=== PATIENT | female | born 1970 | race Caucasian/White ===

== ENCOUNTER → 2016-07-06 | Outpatient (REF) | payer OTHER, BC ==
[~2016-07-06] MED LIST: ABIL15TA; ACET160S5 PO; ALBU17IN2 INH; ALBU20IN; ALBUTEROL INHALATION; AMBI5TAB; AVELOX PO; BISO10TA PO; CAHNTIXC PO; CELE20TA; CELE20TA PO; CHAN0.5P PO; DIFL200T PO; DILA100C; DILA100C PO; DILAN100 PO; ECOT81TA2 PO; ELIDEL TOPICAL; ERYTHROOPT; FISH1000 PO; FOLI1TAB2 PO; HYDR12.55 PO; LASI20TA PO; LISI10TA4 PO; LORA1TAB PO; METH2.5TA PO; OMEP40CA2 PO; PLAV75TA PO; SIMV40TA2 PO; SPIR1CAP INH; VITA100037 PO; ZANTAC150 PO; [UNRECOGNIZED DRUG - OTHER] TOPICAL
[2016-07-06 12:29] LABS: BASO # 0.1 K/mm3 (0.0-0.2); BASO % 1.4 % (0.0-1.0); EOS # 0.4 K/mm3 (0.0-0.50); EOS % 4.6 % (0.0-3.0); LARGE UNSTAINED CELL # 0.1 K/mm3 (0.0-0.4); LARGE UNSTAINED CELL % 1.7 % (0.0-4.0); LYMPH # 1.8 K/mm3 (1.5-4.5); LYMPH % 21.8 % (24.0-44.0); MEAN CORPUSCULAR HEMOGLOBIN 31.3 pg (27.0-33.0); MEAN CORPUSCULAR HGB CONC 33.4 g/dl (32.0-36.5); MEAN CORPUSCULAR VOLUME 93.6 fl (80.0-96.0); MONO # 0.5 K/mm3 (0.0-0.8); MONO % 6.6 % (0.0-5.0); NEUTROPHILS # 4.8 K/mm3 (1.8-7.7); PLATELET COUNT, AUTOMATED 167 k/mm3 (150-450); RED CELL DISTRIBUTION WIDTH 16.3 % (11.5-14.5); WHITE BLOOD COUNT 7.5 K/mm3 (4.0-10.0)
[2016-07-06 12:48] LABS: ERYTHROCYTE SEDIMENTATION RATE 13 mm/hr (0-20)
== END ==
LOC: M LABDRAW1 11:45
PROVIDERS: ATTEND Orthopaedic Surgery
DX: S46.011D Strain of muscle(s) and tendon(s) of the rotator cuff of right shoulder, subsequent encounter (principal); Y92.89 Other specified places as the place of occurrence of the external cause; Y93.89 Activity, other specified; Y99.8 Other external cause status; X58.XXXA Exposure to other specified factors, initial encounter

== ENCOUNTER → 2016-09-27 | Outpatient (CLI) | payer BC ==
[~2016-09-27] MED LIST changes: -ECOT81TA2 PO; +ECOT81TA5 PO; -LORA1TAB PO; +LORA1TAB12 PO; -PLAV75TA PO; +PLAV75TA38 PO
--- NOTE | 2016-09-27 13:27 | REP ---
RIGHT BREAST ULTRASOUND: 09/27/2016. Clinical history: Tender and painful area lower inner quadrant right breast. Comparison diagnostic digital bilateral mammogram today. Sonographic evaluation of the lower inner quadrant from 3 to 6 o'clock position in the right breast where the patient has fairly diffuse pain. No sonographic abnormalities were defined with minimally heterogeneous fatty parenchyma evident. There is no cyst, dilated duct, architectural distortion or mass. No skin thickening. Impression: 1. Negative right breast ultrasound for mass, architectural distortion, dilated duct or cyst. Please see mammogram report this date for final assessment and recommendation. Signed by Kosta Washington MD 09/27/2016 05:07 P
--- NOTE | 2016-09-27 13:30 | REP ---
BILATERAL DIAGNOSTIC MAMMOGRAM: 09/27/2016. Comparison: Right breast ultrasound this date. Clinical history: Tenderness right lower inner quadrant of the breast. No discharge. No palpable mass. Findings: This is a baseline mammogram. Standard two-view mammography was performed and a marker placed over the lower inner quadrant right breast where the patient has tenderness. Additional anterior left MLO view to encompass the entirety of the breast with spot magnified CC, MLO and true MLO views of the right breast, attention to the lower inner quadrant. The breast parenchyma show only scant fibroglandular elements scattered throughout in a pattern and distribution fairly symmetric. I do not see dominant mass, architectural distortion, suspicious clusters of microcalcification, nor any other secondary signs of malignancy. Subjacent to the triangle marker in the region of her tenderness, there is no discrete mass, architectural distortion, clustered microcalcification or other secondary sign of malignancy. Right breast ultrasound lower inner quadrant showed no sonographic definable mass. Impression: 1. BIRADS ACR category 2, benign. Benign finding. No evidence of malignancy. 2. Recommend followup mammography 1 year. This mammogram was interpreted with the aid of an FDA-approved computer-aided detection system. A. Negative x-ray reports should not delay biopsy if a dominant or clinically suspicious mass is present. B. Four to eight percent of cancers are not identified by x-ray. C. Adenosis and dense breasts may obscure an underlying neoplasm. The patient states she had a clinical breast exam in 08/2016. The patient letter being requested is M1. Signed by Kosta Washington MD 09/27/2016 05:08 P
== END ==
LOC: M RAD 10:36
PROVIDERS: ATTEND Family Medicine
DX: N64.4 Mastodynia (principal)
CPT/HCPCS: 76642; G0204

== ENCOUNTER → 2016-10-17 | Outpatient (CLI) | payer BC ==
--- NOTE | 2016-10-17 23:57 | ECWPNPC ---
PATIENT NAME: GEOFFREY PURI : 1970 GENDER: FEMALE VISIT DATE: 10/17/2016 DISCHARGE DATE: 10/17/16 1315 VISIT LOCKED DATE TIME: PHYSICIAN: ROSEMARY DAVE RESOURCE: ROSEMARY DAVE REASON FOR APPOINTMENT 1. BACK PAIN/LEG HISTORY OF PRESENT ILLNESS NEW PATIENT CONSULT: 46 Y/O FEMALE REFERRED BY DR. SALVADOR FOR CHRONIC LOW BACK PAIN/BILAT LEG PAIN.HISTORY OF MULTIPLE COMORBIDITIES.ON CHRONIC PLAVIX THERAPY FOR PERIPHERAL VASCULAR DISEASE.LOW BACK PAIN BEGAN GRADUALLY 4 YEARS AGO WITHOUT PRECIPITATING EVENT.DIAGNOSED WITH PVD IN 2014 AND FEMORAL STENTS WERE PLACED AT THAT TIME.RECENTLY SAW VASCULAR SURGEON FOR F/U FOR INCREASE IN LEG PAIN AND HE FEELS LEG PAIN IS COMING FROM SPINE.HAD TWO LESI IN 2013 WITH AND THIS DIDNT HELP.SAW DR. SAMANIEGO ,RHEUMTOLOGY IN 2014 AND WAS DIAGNOSED WITH RHEUMATOID ARTHRITIS.STARTED ON METHOTREXATE IN 2014 AND THIS DOESNT SEEM TO BE HELPING.THEY ARE CONSIDERING STARTING HER ON REMICADE.SHE REPORTS POOR QUALITY OF LIFE AND DEPRESSED STATE.DENIES SUICIDAL IDEATION.REPORTING SEVERE ACTIVITY INTOLERANCE.HAS GAINED SEVERAL POUNDS OVER THE PAST YEAR.IS CONSIDERING GASTRIC BYPASS.DENIES BOWEL OR BLADDER INCONTINENCE.NO RECENT FEVER ILLNESS OR WEIGHT LOSS.RATING PAIN VAS 8/10. WHEN DID YOUR PAIN FIRST START? . BRIEFLY DESCRIBE HOW YOUR PAIN STARTED? . HOW DOES YOUR PAIN CHANGE WITH TIME? . DOES YOUR PAIN AWAKEN YOU FROM SLEEP? . HOW MANY HOURS OF SLEEP DO YOU NORMALLY GET? . ANY DIAGNOSTIC TESTING? . FACILITY WHERE TESTS WERE DONE? ____. PAIN TREATMENT TREATMENT YES CANCER HAVE YOU EVER HAD ANY TYPE OF CANCER?NO NO. PAIN SCREENING: PATIENT HAS A COMPLAINT OF ACUTE OR CHRONIC PAIN :YES FALL RISK SCREENING: SCREENING :NO FALLS IN THE PAST YEAR OLIVAS INVENTORY: QUESTIONNAIRE ASSESSEDYES SCORE VALUE CALCULATED YES SCORE:25 CURRENT MEDICATIONS TAKING DILANTIN 100 MG CAPSULE 7 CAPS ORALLY DAILY TAKING ASPIRIN EC 81 MG TABLET DELAYED RELEASE 1 TABLET ORALLY ONCE A DAY TAKING TYLENOL 325 MG TABLET 1 TABLET NEEDED ORALLY EVERY 6 HRS TAKING DRISDOL 08981 UNIT CAPSULE 1 CAPSULE ORALLY THREE TIMES A WEEK TAKING ALBUTEROL 0.083% AEROSOL SOLUTION 3 ML INHALATION Q6H PRN TAKING CLOPIDOGREL BISULFATE 75 MG TABLET 1 TABLET ORALLY ONCE A DAY TAKING ALBUTEROL SULFATE HFA 108 (90 BASE) MCG/ACT AEROSOL SOLUTION 2 PUFFS INHALATION QID PRN TAKING OMEGA 3 1000 MG CAPSULE 1 CAPSULE ORALLY DAILY TAKING NYSTATIN 171518 UNIT/GM POWDER 1 TO AFFECTED AREA EXTERNALLY TO ABDOMEN TWICE A DAY, NOTES: USES NEEDED TAKING BISOPROLOL FUMARATE 10 MG TABLET 1 TABLET ORALLY ONCE A DAY TAKING CELEXA 20 MG TABLET 2 TABLET ORALLY ONCE A DAY TAKING HYDROCHLOROTHIAZIDE 12.5 MG TABLET 1 TABLET ORALLY ONCE A DAY TAKING LISINOPRIL 10 MG TABLET 1 TABLET ORALLY ONCE A DAY TAKING LASIX 20 MG TABLET 1 TABLET ORALLY ONCE A DAY TAKING SPIRIVA HANDIHALER 18 MCG CAPSULE 1 CAPSULE INHALATION ONCE A DAY TAKING AMMONIUM LACTATE 12 % LOTION 1 APPLICATION TO AFFECTED AREA EXTERNALLY TO RASH ON ARMS, NECK TWICE A DAY TAKING METRONIDAZOLE 0.75 % LOTION 1 APPLICATION TO AFFECTED AREA EXTERNALLY TO FACE TWICE A DAY TAKING ZOCOR 20 MG TABLET 1 TAB ORALLY DAILY TAKING OMEPRAZOLE 40MG 40MG TABLET 1 TAB(S) ORAL DAILY TAKING CLOBETASOL PROPIONATE 0.05 % CREAM 1 APPLICATION TO AFFECTED AREA EXTERNALLY TO TRUNK TWICE A DAY TAKING TERBINAFINE 1 % CREAM TOPICAL TO FEET EXTERNALLY DAILY TAKING HYDROCODONE-ACETAMINOPHEN 5-325 MG TABLET 1 TABLET NEEDED ORALLY EVERY 6 HRS MDD=4 TAKING ATIVAN 1 MG TABLET 1 TABLET NEEDED ORALLY TID PRN MDD=3 TAKING METHOTREXATE 2.5 MG TABLET ORALLY 8 TABLETS/ WEEK TAKING FOLIC ACID 1 MG TABLET 1 TABLET ORALLY BID TAKING CLOTRIMAZOLE-BETAMETHASONE 1-0.05 % CREAM 1 APPLICATION TO AFFECTED AREA EXTERNALLY TWICE A DAY NOT-TAKING FLUCONAZOLE 200 MG TABLET TAKE ONE TABLET BY MOUTH EVERY DAY NOT-TAKING HIBICLENS 4 % LIQUID DIRECTED EXTERNALLY , NOTES: USES ONCE A WEEK NOT-TAKING DIFLUCAN 200 MG TABLET 1 TABLET ORALLY ONCE DAILY NOT-TAKING LOTRISONE 1-0.05 % CREAM 1 APPLICATION TO AFFECTED AREA EXTERNALLY TWICE A DAY MEDICATION LIST REVIEWED AND RECONCILED WITH THE PATIENT PAST MEDICAL HISTORY SEIZURE DISORDER S/P (BRAIN SURGERY) - HAS BEEN SEIZURE FREE SINCE TUMOR REMOVED TELOGEN EFFLUVIM (HAIR LOSS) DEPRESSION DRUG OVERDOSE 05/09 DEPRESSION CONVULSIONS HYPERLIPIDEMIA HYPERTENSION, ESSENTIAL INSOMNIA, UNSPECIFIED VITAMIN D INSUFFICIENCY OBSTRUCTIVE SLEEP APNEA (ADULT) (PEDIATRIC) CARPAL TUNNEL SYNDROME, UNSPECIFIED UPPER LIMB PERIODIC LIMB MOVEMENT DISORDER NICOTINE DEPENDENCE, CIGARETTES, UNCOMPLICATED ANXIETY DISORDER GASTROESOPHAGEAL REFLUX OTHER SPECIFIED SYMPTOMS AND SIGNS INVOLVING THE DIGESTIVE SYSTEM AND ABDOMEN MORBID OBESITY BODY MASS INDEX (BMI) OF 50-59.9 IN ADULT 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 NESBITT COPD BACK PAIN NECK PAIN RHEUMATOID ARTHRITIS ALLERGIES PENICILLIN (FOR ALLERGIES USE ONLY): CANT BREATH: ALLERGY SULFATES: RASH: ALLERGY SURGICAL HISTORY EXCISION OF BENIGN BRAIN TUMOR 1986 1986 TUBAL LIGATION CARP TUNNEL LEFT 05/19/14 CARP TUNNEL RIGHT 08/06/14 3 STENTS PLACED - RIGHT COMMON ILIAC ARTERY, AND LEFT COMMON ILIIAC ARTERIES - DR. HUTCHINSON 05/11/15 RIGHT ROTATOR CUFF 04/04/16 FAMILY HISTORY FATHER: , CARDIAC DISEASE ? , SUICIDE, DIAGNOSED WITH HEART DISEASE, PSYCHIATRIC CONDITIONS MOTHER: , LUNG CANCER, DIAGNOSED WITH CANCER SIBLINGS: ALIVE, BROTHER DIABETES, DIVERTICULITIS SISTER OVARIAN CANCER BOTH SISTER HEART PROBLEMS, 1 PACE MAKER, DIAGNOSED WITH DIABETES, HEART DISEASE, CANCER DAUGHTER(S): ALIVE 3 BROTHER(S) , 2 SISTER(S) . 1DAUGHTER(S) . SOCIAL HISTORY GENERAL: TOBACCO USE ARE YOU A:CURRENT SMOKER HOW MANY CIGARETTES A DAY DO YOU SMOKE?21-30 STATES THAT SHE IS DOWN TO 20 CIGARETTES PER DAY FROM 31. HOW SOON AFTER YOU WAKE UP DO YOU SMOKE YOUR FIRST CIGARETTE?6-30 MIN HOW OFTEN DO YOU SMOKE CIGARETTES?EVERY DAY PATIENT COUNSELED ON THE DANGERS OF TOBACCO USE AND URGED TO QUIT:09/22/2016 10/17/16 ARE YOU INTERESTED IN QUITTING?READY TO QUIT PATIENT BOUGHT PATCHES TO HELP QUIT COUNSELED THE PATIENT ON TOBACCO USE, CESSATION [id number]/18/2017 ADDITIONAL FINDINGS: TOBACCO USERHEAVY CIGARETTE SMOKER (20-39 CIGS/DAY) SMOKING CESSATION INFORMATION GIVEN10/17/2016 ADDITIONAL FINDINGS: TOBACCO NON-USER NONE VAPORNO E-CIGARETTENO BMI CARE GOAL FOLLOW-UP ABOVE NORMAL BMI FOLLOW-UPDIETARY MANAGEMENT EDUCATION, GUIDANCE, AND COUNSELING ALCOHOL SCREENING POINTS: 1, INTERPRETATION: NEGATIVE. RECREATIONAL DRUG USE DENIES. CAFFEINE CAFFEINE USE?YES HOW OFTEN AND HOW MUCH? 2 CUPS OF COFFEE PER DAY, 1 SODA PER WEEK HIV / HEP-C SCREENING HIV TEST OFFERED TO PATIENT:YES DATE OFFERED:09/22/2016 TEST ACCEPTED:NO REASON:PATIENT DECLINED CONSENT ON FILE HEP-C TEST OFFERED TO PATIENT:YES DATE OFFERED:09/22/2016 TEST ACCEPTED:NO REASON:PATIENT DECLINED CONSENT ON FILE OCCUPATION: [employer] AT [employer], CURRENTLY OUT ON COMP.. DIET: REGULAR. EXERCISE: NO REGULAR EXERCISE. MARITAL STATUS: . OTHERS AT HOME: SPOUSE. PETS: 2 CATS. SABIANIST NO CHEONDOISM BELIEFS THAT WOULD IMPACT HEALTH CARE. LANGUAGE [employer]. EDUCATION HIGH SCHOOL. LEARNING BARRIERS / SPECIAL NEEDS CHANGE FROM LAST VISIT?NO BARRIERS TO LEARNING?NO HEARING IMPAIRED?NO VISION IMPAIRED?YES :CORRECTIVE LENSES COGNITIVELY IMPAIRED?NO READINESS TO LEARN?YES LEARNING PREFERENCES?NO LEARNING CAPABILITIES PRESENT?YES EMOTIONAL BARRIERS?NO SPECIAL DEVICES?YES :CANE ENVIRONMENTAL HEALTH PHYSICIAN NEEDED?NO PAIN CLINIC PFS, CLERGY, PUBLIC HEALTH REFERRALS CLERGY REFERRAL NEEDED?NO WAS THE PROVIDER NOTIFIED OF ANY PERTINENT INFO?NO PFS REFERRAL NEEDED?NO PUBLIC HEALTH REFERRAL NEEDED?NO PATIENT: ____. ADVANCED DIRECTIVES HEALTH CARE PROXY?NO WOULD YOU LIKE MORE INFORMATION?NO DO YOU HAVE A DNR?NO WOULD YOU LIKE MORE INFORMATION?NO LIVING WILL?NO WOULD YOU LIKE MORE INFORMATION?NO POWER OF INSIDE SALES PROFESSIONAL?NO WOULD YOU LIKE MORE INFORMATION?NO TRAVEL OUTSIDE US: NO TRAVEL OUTSIDE THE US IN THE LAST 21 DAYS.. HOUSING: OWNS HOME. DOMESTIC VIOLENCE: NONE. HOSPITALIZATION/MAJOR DIAGNOSTIC PROCEDURE SURGERY DRUG OVERDOSE 2008 REVIEW OF SYSTEMS CONSTITUTIONAL: RECENT ILLNESS DENIES . ANY CHANGE IN YOUR MEDICAL CONDITION? NO . CHILLS NO . FEVER NO, DENIES . WEIGHT LOSS DENIES . INFECTION: DO YOU HAVE NEW INFECTIONS? NO . DO YOU HAVE HISTORY OF MRSA? NO . MUSCULOSKELETAL: ANY NEW PATTERNS OF PAIN OR NUMBNESS? NO . SYTEMIC LUPUS NO . JOINT PAIN DENIES . JOINT STIFFNESS DENIES . GASTROENTEROLOGY: BOWEL INCONTINENCE DENIES . ANY NEW CHANGE IN BOWEL CONTROL? NO . BARRETTS ESOPHAGUS NO . CIRRHOSIS NO . HEPATITIS NO . LIVER FAILURE NO . ACID REFLUX YES . BLOOD IN STOOL DENIES . UNEXPLAINED WEIGHT LOSS NO . GENITOURINARY: ANY NEW CHANGE IN BLADDER CONTROL? NO . IS THERE A CHANCE YOU COULD BE ? NO . HEMATOLOGY/LYMPH: DENIES . BLEEDING DISORDER DENIES . DO YOU TAKE ANY BLOOD THINNERS? (FOR EXAMPLE- COUMADIN, PLAVIX, AGGRENOX, PLATEL, PRADAXA, OR XARELTO) YES . WHEN WAS YOUR LAST DOSE? DATE: TIME: . LOW PLATELET COUNT NO . SICKLE CELL DISEASE NO . VON WILLIEBRANDS NO . FACTOR V LEIDEN NO . THALLASEMIA NO . ANEMIA NO . EASY BRUISING NO . NEUROLOGY: HAVE YOU FALLEN IN THE PAST 6 MONTHS? NO . ANY NEW EXTREMITY NUMBNESS OR WEAKNESS? NO . HEAD INJURY NO . DEMENTIA NO . CEREBRAL PALSY NO . MULTIPLE SCLEROSIS NO . DIZZINESS NO . HEADACHE NO, DENIES . SEIZURES DENIES . STROKES NO . VERTIGO NO . CARDIOLOGY: DO YOU HAVE A PACEMAKER OR DEFIBRILLATOR? NO . ANGINA NO . HEART ATTACK NO . HEART SURGERY NO . CONGESTIVE HEART FAILURE/FLUID OVERLOAD NO . CHEST PAIN NO, DENIES . HIGH BLOOD PRESSURE ON MEDICATION(S) . IRREGULAR HEART BEAT NO . SHORTNESS OF BREATH DENIES . RESPIRATORY: HAVE YOU BEEN SICK IN THE PAST WEEK? NO . FEVER NO . FLU LIKE SYMPTOMS? NO . CPAP YES . BYPAP NO . ASTHMA NO . EMPHYSEMA NO . CHRONIC LUNG DISEASES YES, COPD . SHORTNESS OF BREATH ON EXERTION NO . DO YOU USE ANY TYPE OF TOBACCO (SMOKE, SMOKELESS, CHEW)? YES . COUGH NO, DENIES . SHORTNESS OF BREATH DENIES . SNORING NO . INTEGUMENTARY: DO YOU HAVE ANY RASHES OR OPEN SORES? YES, RASH UNDER SKIN FOLDS . ALLERGIC/IMMUNO: ARE YOU ALLERGIC TO SHELLFISH OR IV DYE? NO . ANY NEW ALLERGIES? NO . PSYCHIATRIC: DO YOU HAVE THOUGHTS OF HURTING YOURSELF OR SOMEONE ELSE? NO . ARE YOU ABUSED, NEGLECTED, OR IN AN UNSAFE ENVIRONMENT? NO . ENDOCRINOLOGY: THYROID DISEASE DENIES . ARE YOU DIABETIC? NO . DIABETES DENIES . THYROID DISORDER NO . OTHER: DO YOU NEED ANY PRESCRIPTIONS? NO . IF YES, PLEASE LIST: ____ . ANY NEW PROBLEMS WITH YOUR MEDICATIONS? NO . WHEN DID YOU LAST EAT? ____ . WHEN DID YOU LAST DRINK? ____ . WHAT DID YOU LAST DRINK? ____ . NAME OF PERSON DRIVING YOU HOME? ____ . DO YOU HAVE ANY OTHER QUESTIONS OR CONCERNS NO . HEENT: CHANGE IN VISION DENIES . LOSS OF HEARING DENIES . TROUBLE SWALLOWING DENIES . PSYCHOLOGY: ANXIETY DENIES . DEPRESSION DENIES . UROLOGY: URINARY INCONTINENCE DENIES . BLOOD IN URINE DENIES . REVIEWED BY: PROVIDER: ROSEMARY RANDOLPH . VITAL SIGNS WT 350.4 LBS, HT 65 IN, BMI 58.30 INDEX, BP 117/56 MM HG, HR 87 /MIN, RR 18 /MIN, TEMP 87 F, OXYGEN SAT % 93%, NA INITIALS SC 12:02, REVIEWED BY: CS. EXAMINATION GENERAL EXAMINATION: GENERAL APPEARANCE:MORBIDLY OBESE. HEENT:HEAD:, NORMOCEPHALIC, EYES:, EYES NORMAL, NOSE:, NOSE CLEAR, THROAT: NORMAL. LUNGS:LUNG SOUNDS ARE CLEAR. HEART:HEART RATE REGULAR. ABDOMEN:SOFT AND NOT TENDER.MORBIDLY OBESE. MUSCULOSKELETAL:*. LUMBAR SACRAL SPINEMUSCLE STRENGTH TESTING /5 BLE. PALPATION: +FOR PAIN OVER L/S SPINE. + FOR PAIN OVER L/S PARASPINALS. THORACIC SPINENEGATIVE FOR PAIN WITH PALPATION OF THORACIC SPINE. NEGATIVE FOR PAIN WITH PALPATION OF THORACIC PARASPINAL. CERVICALNEGATIVE FOR PAIN WITH PALPATION OF CERVICAL SPINE. NEGATIVE FOR PAIN WITH PALPATION OF CERVICAL PARASPINALS. NEGATIVE FOR PAIN WITH PALPATION OF TRAPEZIUS BILAT. SKIN:NORMAL, NO RASH. NEUROLOGIC EXAM:ALERT AND ORIENTED X 3, DTRS 1-2+ IN ALL 4 EXTREMITIES, DENIES UPPER EXTREMETIES SENSORY LOSS, DENIES LOWER EXTREMETIES SENSORY LOSS. DIAGNOSTIC: MRI L/S SPINE-11/25/2014-MULTILEVEL FACET ARTHROPATHY. 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 THEY WERE ADVISED THAT THIS WILL IMPROVE WEIGHT LOSS AND ALSO DEPRESSION/FIBROMYALGIA SYMPTOMS. ADVISED TO WALK 10 MINUTES EVERY OTHER DAY ON A FLAT SURFACE. EMPHASIZED THE IMPORTANCE OF DOING THIS CONSISTANTLY AND NOT SPORATICALLY TO AVOID INJURY. STRONGLY ADVISED NOT TO DO MORE THAN 10 MINUTES EVERY OTHER DAY FOR THE FIRST 4 WEEKS. OTHERS CLINICAL NOTES: ISTOP REGISTRY REVIEWED AND DEMONSTRATES COMPLIANCE. BRINGS IN MEDICATIONS WHICH IS APPROPRIATE FOR WHAT WAS DISPENSED. RECENT URINE TOXICOLOGY REVIEWED. NO UNAUTHORIZED MEDICATIONS. NO ILLICIT SUBSTANCES AND PRESCRIBED MEDICATIONS WERE PRESENT. PROCEDURE CODES FA211 ESTABILISHED PATIENT [facility] CHARGE DISPOSITION & COMMUNICATION FOLLOW UP 4 WEEKS ELECTRONICALLY SIGNED BY AGUSTÍN PRIEST ON 10/17/2016 AT 01:50 PM EDT DISCLAIMER : THIS IS A VISIT SUMMARY EXTRACTED FROM THE [facility] CHART. IT IS NOT A COPY OF THE [facility] PROGRESS NOTE. NEYMARD
== END ==
LOC: M PAIN 11:20
PROVIDERS: ATTEND Nurse Practitioner Family
DX: M54.5 Low back pain (principal); G89.29 Other chronic pain; M47.16 Other spondylosis with myelopathy, lumbar region; M06.9 Rheumatoid arthritis, unspecified; Z79.891 Long term (current) use of opiate analgesic; Z79.899 Other long term (current) drug therapy; Z79.82 Long term (current) use of aspirin; F32.9 Major depressive disorder, single episode, unspecified; E78.5 Hyperlipidemia, unspecified; I10 Essential (primary) hypertension; E55.9 Vitamin D deficiency, unspecified; F17.210 Nicotine dependence, cigarettes, uncomplicated; I73.9 Peripheral vascular disease, unspecified

== ENCOUNTER → 2016-10-17 | Outpatient (REF) | payer BC ==
[2016-10-17 17:36] LABS: ANION GAP 8 MEQ/L (8-16); BLOOD UREA NITROGEN 10 MG/DL (7-18); CALCIUM LEVEL 8.6 MG/DL (8.5-10.1); CARBON DIOXIDE LEVEL 31 MEQ/L (21-32); CHLORIDE LEVEL 99 MEQ/L (98-107); CREATININE FOR GFR 0.58 MG/DL (0.55-1.02); GLOMERULAR FILTRATION RATE > 60.0 (>58); GLUCOSE, FASTING 145 MG/DL (70-105); POTASSIUM SERUM 4.3 MEQ/L (3.5-5.1); SODIUM LEVEL 138 MEQ/L (136-145)
== END ==
LOC: M SFHCCLAY 10:25
PROVIDERS: ATTEND Family Medicine
DX: I73.9 Peripheral vascular disease, unspecified (principal); M06.9 Rheumatoid arthritis, unspecified; R39.89 Other symptoms and signs involving the genitourinary system

== ENCOUNTER → 2016-10-20 | Outpatient (CLI) | payer BC ==
--- NOTE | 2016-10-20 10:50 | REP ---
Limited pelvic, bladder sonography: History: Pressure sensation in the bladder. Pre- and postvoid imaging. Comparison pelvic sonography September 03, 2009. Findings: Pre-void bladder volume is calculated at 425 ml. No bladder mass lesion is seen. No extravesical lesion is observed. Post void, there is incomplete emptying with calculated post void volume of 206 ml, 48% postvoid residual. Scan quality is inhibited to some degree by patient body habitus. Impression: Moderate postvoid residual. Signed by Estuardo Lynne MD 10/20/2016 12:49 P
== END ==
LOC: M RAD 09:21
PROVIDERS: ATTEND Family Medicine
DX: R39.89 Other symptoms and signs involving the genitourinary system (principal)

== ENCOUNTER → 2016-11-07 | Outpatient (REF) | payer BC | LOC: M SFHCCLAY 11:47 | PROVIDERS: ATTEND Nurse Practitioner Family | DX: L98.499 Non-pressure chronic ulcer of skin of other sites with unspecified severity (principal) ==

== ENCOUNTER → 2016-11-14 | Outpatient (CLI) | payer BC ==
--- NOTE | 2016-11-15 00:45 | ECWPNPC ---
PATIENT NAME: GEOFFREY PURI : 1970 GENDER: FEMALE VISIT DATE: 11/14/2016 DISCHARGE DATE: 11/14/16928 VISIT LOCKED DATE TIME: PHYSICIAN: ROSEMARY DAVE RESOURCE: ROSEMARY DAVE REASON FOR APPOINTMENT 1. F/U BACK AND LEGS HISTORY OF PRESENT ILLNESS HISTORY OF PRESENT ILLNESS: HERE FOR F/U AND MANAGEMENT OF CHRONIC LOW BACK PAIN AND BILATERAL LEG PAIN.STARTED ON MORPHINE 15MG IR LAST VISIT AND IS TAKING THIS WITH SOME RELIEF.HAS ONLY USED 3 TABLETS OUT OF #30 GIVEN ONE MONTH AGO.HAS STARTED TO DO WALKING PROGRAM.IS BEING CONSIDERED FOR REMICADE BUT CURRENTLY HAS AN INFECTION.RATING PAIN VAS 8/10.DESCRIBES PAIN CONSTANT BURNING AND TENDER. PAIN THE PATIENT DESCRIBES THE PAIN... FALL RISK SCREENING: SCREENING :NO FALLS IN THE PAST YEAR CURRENT MEDICATIONS TAKING DILANTIN 100 MG CAPSULE 7 CAPS ORALLY DAILY TAKING ASPIRIN EC 81 MG TABLET DELAYED RELEASE 1 TABLET ORALLY ONCE A DAY TAKING TYLENOL 325 MG TABLET 1 TABLET NEEDED ORALLY EVERY 6 HRS TAKING DRISDOL 49714 UNIT CAPSULE 1 CAPSULE ORALLY THREE TIMES A WEEK TAKING ALBUTEROL 0.083% AEROSOL SOLUTION 3 ML INHALATION Q6H PRN TAKING CLOPIDOGREL BISULFATE 75 MG TABLET 1 TABLET ORALLY ONCE A DAY TAKING ALBUTEROL SULFATE HFA 108 (90 BASE) MCG/ACT AEROSOL SOLUTION 2 PUFFS INHALATION QID PRN TAKING OMEGA 3 1000 MG CAPSULE 1 CAPSULE ORALLY DAILY TAKING NYSTATIN 352226 UNIT/GM POWDER 1 TO AFFECTED AREA EXTERNALLY TO ABDOMEN TWICE A DAY, NOTES: USES NEEDED TAKING BISOPROLOL FUMARATE 10 MG TABLET 1 TABLET ORALLY ONCE A DAY TAKING HYDROCHLOROTHIAZIDE 12.5 MG TABLET 1 TABLET ORALLY ONCE A DAY TAKING LISINOPRIL 10 MG TABLET 1 TABLET ORALLY ONCE A DAY TAKING LASIX 20 MG TABLET 1 TABLET ORALLY ONCE A DAY TAKING SPIRIVA HANDIHALER 18 MCG CAPSULE 1 CAPSULE INHALATION ONCE A DAY TAKING AMMONIUM LACTATE 12 % LOTION 1 APPLICATION TO AFFECTED AREA EXTERNALLY TO RASH ON ARMS, NECK TWICE A DAY TAKING METRONIDAZOLE 0.75 % LOTION 1 APPLICATION TO AFFECTED AREA EXTERNALLY TO FACE TWICE A DAY TAKING ZOCOR 20 MG TABLET 1 TAB ORALLY DAILY TAKING OMEPRAZOLE 40MG 40MG TABLET 1 TAB(S) ORAL DAILY TAKING TERBINAFINE 1 % CREAM TOPICAL TO FEET EXTERNALLY DAILY TAKING HYDROCODONE-ACETAMINOPHEN 5-325 MG TABLET 1 TABLET NEEDED ORALLY EVERY 6 HRS MDD=4 TAKING METHOTREXATE 2.5 MG TABLET ORALLY 8 TABLETS/ WEEK TAKING FOLIC ACID 1 MG TABLET 1 TABLET ORALLY BID TAKING CLOTRIMAZOLE-BETAMETHASONE 1-0.05 % CREAM 1 APPLICATION TO AFFECTED AREA EXTERNALLY TWICE A DAY TAKING MORPHINE SULFATE 15 MG TABLET 1/2-1 ORALLY EVERY 8 HRS PRN MDD3 TAKING ATIVAN 1 MG TABLET 1 TABLET NEEDED ORALLY TID PRN MDD=3 TAKING PREDNISONE 5 MG TABLET 1 TABLET ORALLY ONCE A DAY--TAPER PACK TAKING HIBICLENS 4 % LIQUID DIRECTED EXTERNALLY , NOTES: USES ONCE A WEEK TAKING CELEXA 40 MG TABLET 1 TAB ORALLY ONCE A DAY TAKING CLINDAMYCIN HCL 150 MG CAPSULE 1 CAPSULE ORALLY EVERY 6 HRS MEDICATION LIST REVIEWED AND RECONCILED WITH THE PATIENT PAST MEDICAL HISTORY SEIZURE DISORDER S/P (BRAIN SURGERY) - HAS BEEN SEIZURE FREE SINCE TUMOR REMOVED TELOGEN EFFLUVIM (HAIR LOSS) DEPRESSION DRUG OVERDOSE 05/09 DEPRESSION CONVULSIONS HYPERLIPIDEMIA HYPERTENSION, ESSENTIAL INSOMNIA, UNSPECIFIED VITAMIN D INSUFFICIENCY OBSTRUCTIVE SLEEP APNEA (ADULT) (PEDIATRIC) CARPAL TUNNEL SYNDROME, UNSPECIFIED UPPER LIMB PERIODIC LIMB MOVEMENT DISORDER NICOTINE DEPENDENCE, CIGARETTES, UNCOMPLICATED ANXIETY DISORDER GASTROESOPHAGEAL REFLUX OTHER SPECIFIED SYMPTOMS AND SIGNS INVOLVING THE DIGESTIVE SYSTEM AND ABDOMEN MORBID OBESITY BODY MASS INDEX (BMI) OF 50-59.9 IN ADULT OTHER TRANSCRIPTER (CURRENT) DRUG THERAPY MULTIPLE CHRONIC DISEASES PVD (PERIPHERAL VASCULAR DISEASE) FATTY LIVER EDEMA, UNSPECIFIED OTHER FATIGUE HYPERSOMNIA, UNSPECIFIED SNORING ROSACEA HISTORY OF HIDRADENITIS SUPPURATIVA TEAR OF RIGHT ROTATOR CUFF, UNSPECIFIED TEAR EXTENT CORTISONE INJECTION RIGHT SHOULDER- DR. NESBITT COPD BACK PAIN NECK PAIN RHEUMATOID ARTHRITIS ALLERGIES PENICILLIN (FOR ALLERGIES USE ONLY): CANT BREATH: ALLERGY SULFATES: RASH: ALLERGY REVIEW OF SYSTEMS CONSTITUTIONAL: ANY CHANGE IN YOUR MEDICAL CONDITION? NO . CHILLS NO . FEVER NO . INFECTION: DO YOU HAVE NEW INFECTIONS? NO . DO YOU HAVE HISTORY OF MRSA? NO . MUSCULOSKELETAL: ANY NEW PATTERNS OF PAIN OR NUMBNESS? NO . GASTROENTEROLOGY: ANY NEW CHANGE IN BOWEL CONTROL? NO . GENITOURINARY: ANY NEW CHANGE IN BLADDER CONTROL? NO . IS THERE A CHANCE YOU COULD BE ? NO . HEMATOLOGY/LYMPH: DO YOU TAKE ANY BLOOD THINNERS? (FOR EXAMPLE- COUMADIN, PLAVIX, AGGRENOX, PLATEL, PRADAXA, OR XARELTO) YES, PLAVIX . WHEN WAS YOUR LAST DOSE? DATE: 11/13/16 TIME: 0800 . NEUROLOGY: HAVE YOU FALLEN IN THE PAST 6 MONTHS? NO . ANY NEW EXTREMITY NUMBNESS OR WEAKNESS? NO . CARDIOLOGY: DO YOU HAVE A PACEMAKER OR DEFIBRILLATOR? NO . RESPIRATORY: HAVE YOU BEEN SICK IN THE PAST WEEK? NO . FEVER NO . FLU LIKE SYMPTOMS? NO . COUGH NO . INTEGUMENTARY: DO YOU HAVE ANY RASHES OR OPEN SORES? YES, UNDER ABDOMINAL FOLD, GROIN AND INSIDE OF RIGHT LEG AND STARTED ON CLINDAMYCIN 11/13/16 . ALLERGIC/IMMUNO: ARE YOU ALLERGIC TO SHELLFISH OR IV DYE? NO . ANY NEW ALLERGIES? NO . PSYCHIATRIC: DO YOU HAVE THOUGHTS OF HURTING YOURSELF OR SOMEONE ELSE? NO . ARE YOU ABUSED, NEGLECTED, OR IN AN UNSAFE ENVIRONMENT? NO . ENDOCRINOLOGY: ARE YOU DIABETIC? NO . OTHER: DO YOU NEED ANY PRESCRIPTIONS? NO . IF YES, PLEASE LIST: ____ . ANY NEW PROBLEMS WITH YOUR MEDICATIONS? NO . WHEN DID YOU LAST EAT? ____ . WHEN DID YOU LAST DRINK? ____ . WHAT DID YOU LAST DRINK? ____ . NAME OF PERSON DRIVING YOU HOME? ____ . DO YOU HAVE ANY OTHER QUESTIONS OR CONCERNS NO . REVIEWED BY: PROVIDER: ROSEMARY RANDOLPH . VITAL SIGNS WT 335 LBS, HT 65 IN, BMI 55.74 INDEX, BP 134/58 MM HG, HR 96 /MIN, RR 20 /MIN, TEMP 98.3 F, OXYGEN SAT % 95%, NA INITIALS SC 08:58, REVIEWED BY: CS. EXAMINATION GENERAL EXAMINATION: GENERAL APPEARANCE:MORBIDLY OBESE. HEENT:HEAD:, NORMOCEPHALIC, EYES:, EYES NORMAL, NOSE:, NOSE CLEAR, THROAT: NORMAL. LUNGS:LUNG SOUNDS ARE CLEAR. HEART:HEART RATE REGULAR. ABDOMEN:SOFT AND NOT TENDER.MORBIDLY OBESE. MUSCULOSKELETAL:*. LUMBAR SACRAL SPINEMUSCLE STRENGTH TESTING /5 BLE. PALPATION: +FOR PAIN OVER L/S SPINE. + FOR PAIN OVER L/S PARASPINALS. THORACIC SPINENEGATIVE FOR PAIN WITH PALPATION OF THORACIC SPINE. NEGATIVE FOR PAIN WITH PALPATION OF THORACIC PARASPINAL. CERVICALNEGATIVE FOR PAIN WITH PALPATION OF CERVICAL SPINE. NEGATIVE FOR PAIN WITH PALPATION OF CERVICAL PARASPINALS. NEGATIVE FOR PAIN WITH PALPATION OF TRAPEZIUS BILAT. SKIN:NORMAL, NO RASH. NEUROLOGIC EXAM:ALERT AND ORIENTED X 3, DTRS 1-2+ IN ALL 4 EXTREMITIES, DENIES UPPER EXTREMETIES SENSORY LOSS, DENIES LOWER EXTREMETIES SENSORY LOSS. DIAGNOSTIC: MRI L/S SPINE-11/25/2014-MULTILEVEL FACET ARTHROPATHY. 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 PROCEDURE CODES FA211 ESTABILISHED PATIENT [facility] CHARGE DISPOSITION & COMMUNICATION FOLLOW UP 4 WEEKS ELECTRONICALLY SIGNED BY AGUSTÍN PRIEST ON 11/14/2016 AT 03:14 PM EDT DISCLAIMER : THIS IS A VISIT SUMMARY EXTRACTED FROM THE [employer] CHART. IT IS NOT A COPY OF THE [employer] PROGRESS NOTE. DINA
== END ==
LOC: M PAIN 08:40
PROVIDERS: ATTEND Nurse Practitioner Family
DX: M47.16 Other spondylosis with myelopathy, lumbar region (principal); M06.9 Rheumatoid arthritis, unspecified; M54.5 Low back pain; G89.29 Other chronic pain; Z79.891 Long term (current) use of opiate analgesic; Z79.82 Long term (current) use of aspirin; Z79.899 Other long term (current) drug therapy; Z88.0 Allergy status to penicillin; Z88.2 Allergy status to sulfonamides; F32.9 Major depressive disorder, single episode, unspecified; E78.5 Hyperlipidemia, unspecified; R56.9 Unspecified convulsions; I10 Essential (primary) hypertension; E55.9 Vitamin D deficiency, unspecified; F41.9 Anxiety disorder, unspecified; K21.9 Gastro-esophageal reflux disease without esophagitis; I73.9 Peripheral vascular disease, unspecified

== ENCOUNTER → 2016-12-13 | Outpatient (CLI) | payer BC ==
--- NOTE | 2016-12-14 01:07 | ECWPNPC ---
PATIENT NAME: GEOFFREY PURI : 1970 GENDER: FEMALE VISIT DATE: 12/13/2016 DISCHARGE DATE: 12/13/16 0943 VISIT LOCKED DATE TIME: PHYSICIAN: ROSEMARY DAVE RESOURCE: ROSEMARY DAVE REASON FOR APPOINTMENT 1. F/U BACK AND LEGS HISTORY OF PRESENT ILLNESS HISTORY OF PRESENT ILLNESS: HERE FOR F/U OF CHRONIC LOW BACK PAIN.RATING PAIN VAS 5/10.PAIN IS LOCATED ACROSS LOW BACK.PAIN IS AGGREVATED BY STANDING AND RELIEVED SOMEWHAT WITH REST.REPORTS THAT MORPHINE 15MG DOES NOT HELP PAIN AND CAUSES HEAD TO BE FOGGED.HAS TRIALED MULTIPLE OPIODS TO INCLUDE HYDROCODONE AND OXYCODONE THAT WERE INEFFECTIVE.DISCUSSED TRESTMENT OPTIONS.CURRENTLY BEING TREATED FOR PHLEBITIS WITH ANTIBIOTIC.ATTENDS WOUND CLINIC FOR ABDOMINAL WOUND DEBRIDEMENT. PAIN THE PATIENT DESCRIBES THE PAIN... FALL RISK SCREENING: SCREENING :NO FALLS IN THE PAST YEAR CURRENT MEDICATIONS TAKING TERBINAFINE 1 % CREAM TOPICAL TO FEET EXTERNALLY DAILY TAKING HIBICLENS 4 % LIQUID DIRECTED EXTERNALLY , NOTES: USES ONCE A WEEK TAKING DILANTIN 100 MG CAPSULE 7 CAPS ORALLY DAILY TAKING ASPIRIN EC 81 MG TABLET DELAYED RELEASE 1 TABLET ORALLY ONCE A DAY TAKING DRISDOL 39100 UNIT CAPSULE 1 CAPSULE ORALLY THREE TIMES A WEEK TAKING ALBUTEROL 0.083% AEROSOL SOLUTION 3 ML INHALATION Q6H PRN TAKING CLOPIDOGREL BISULFATE 75 MG TABLET 1 TABLET ORALLY ONCE A DAY TAKING ALBUTEROL SULFATE HFA 108 (90 BASE) MCG/ACT AEROSOL SOLUTION 2 PUFFS INHALATION QID PRN TAKING OMEGA 3 1000 MG CAPSULE 1 CAPSULE ORALLY DAILY TAKING NYSTATIN [id number] UNIT/GM POWDER 1 TO AFFECTED AREA EXTERNALLY TO ABDOMEN TWICE A DAY, NOTES: USES NEEDED TAKING BISOPROLOL FUMARATE 10 MG TABLET 1 TABLET ORALLY ONCE A DAY TAKING LASIX 20 MG TABLET 1 TABLET ORALLY ONCE A DAY TAKING SPIRIVA HANDIHALER 18 MCG CAPSULE 1 CAPSULE INHALATION ONCE A DAY TAKING AMMONIUM LACTATE 12 % LOTION 1 APPLICATION TO AFFECTED AREA EXTERNALLY TO RASH ON ARMS, NECK TWICE A DAY TAKING METRONIDAZOLE 0.75 % LOTION 1 APPLICATION TO AFFECTED AREA EXTERNALLY TO FACE TWICE A DAY TAKING ZOCOR 20 MG TABLET 1 TAB ORALLY DAILY TAKING CLOTRIMAZOLE-BETAMETHASONE 1-0.05 % CREAM 1 APPLICATION TO AFFECTED AREA EXTERNALLY TWICE A DAY TAKING CELEXA 40 MG TABLET 1 TAB ORALLY ONCE A DAY TAKING ATIVAN 1 MG TABLET 1 TABLET NEEDED ORALLY TID PRN MDD=3 TAKING MORPHINE SULFATE 15 MG TABLET 1/2-1 ORALLY EVERY 8 HRS PRN MDD3 TAKING LANSOPRAZOLE 30 MG CAPSULE DELAYED RELEASE 1 CAPSULE ORALLY ONCE A DAY TAKING LISINOPRIL 10 MG TABLET 1 TABLET ORALLY ONCE A DAY TAKING CLINDAMYCIN HCL 300 MG CAPSULE 1 CAPSULE ORALLY EVERY 8 HRS NOT-TAKING CLINDAMYCIN HCL 150 MG CAPSULE 1 CAPSULE ORALLY EVERY 6 HRS NOT-TAKING TYLENOL 325 MG TABLET 1 TABLET NEEDED ORALLY EVERY 6 HRS NOT-TAKING FOLIC ACID 1 MG TABLET 1 TABLET ORALLY BID NOT-TAKING PREDNISONE 5 MG TABLET 1 TABLET ORALLY ONCE A DAY--TAPER PACK PAST MEDICAL HISTORY SEIZURE DISORDER S/P (BRAIN SURGERY) - HAS BEEN SEIZURE FREE SINCE TUMOR REMOVED TELOGEN EFFLUVIM (HAIR LOSS) DEPRESSION DRUG OVERDOSE 05/09 DEPRESSION CONVULSIONS HYPERLIPIDEMIA HYPERTENSION, ESSENTIAL INSOMNIA, UNSPECIFIED VITAMIN D INSUFFICIENCY OBSTRUCTIVE SLEEP APNEA (ADULT) (PEDIATRIC) CARPAL TUNNEL SYNDROME, UNSPECIFIED UPPER LIMB PERIODIC LIMB MOVEMENT DISORDER NICOTINE DEPENDENCE, CIGARETTES, UNCOMPLICATED ANXIETY DISORDER GASTROESOPHAGEAL REFLUX OTHER SPECIFIED SYMPTOMS AND SIGNS INVOLVING THE DIGESTIVE SYSTEM AND ABDOMEN MORBID OBESITY BODY MASS INDEX (BMI) OF 50-59.9 IN ADULT OTHER [employer] (CURRENT) DRUG THERAPY MULTIPLE CHRONIC DISEASES PVD (PERIPHERAL VASCULAR DISEASE) FATTY LIVER EDEMA, UNSPECIFIED OTHER FATIGUE HYPERSOMNIA, UNSPECIFIED SNORING ROSACEA HISTORY OF HIDRADENITIS SUPPURATIVA TEAR OF RIGHT ROTATOR CUFF, UNSPECIFIED TEAR EXTENT CORTISONE INJECTION RIGHT SHOULDER- DR. NESBITT COPD BACK PAIN NECK PAIN RHEUMATOID ARTHRITIS PHLEBITUS TO LEFT LEG ALLERGIES PENICILLIN (FOR ALLERGIES USE ONLY): CANT BREATH: ALLERGY SULFATES: RASH: ALLERGY REVIEW OF SYSTEMS CONSTITUTIONAL: ANY CHANGE IN YOUR MEDICAL CONDITION? YES, PHLEBITUS IN LEFT LEG . CHILLS NO . FEVER NO . INFECTION: DO YOU HAVE NEW INFECTIONS? NO . DO YOU HAVE HISTORY OF MRSA? NO . MUSCULOSKELETAL: ANY NEW PATTERNS OF PAIN OR NUMBNESS? YES, LEFT LEG . GASTROENTEROLOGY: ANY NEW CHANGE IN BOWEL CONTROL? NO . GENITOURINARY: ANY NEW CHANGE IN BLADDER CONTROL? NO . IS THERE A CHANCE YOU COULD BE ? NO . HEMATOLOGY/LYMPH: DO YOU TAKE ANY BLOOD THINNERS? (FOR EXAMPLE- COUMADIN, PLAVIX, AGGRENOX, PLATEL, PRADAXA, OR XARELTO) YES . WHEN WAS YOUR LAST DOSE? DATE: TIME: . NEUROLOGY: HAVE YOU FALLEN IN THE PAST 6 MONTHS? NO . ANY NEW EXTREMITY NUMBNESS OR WEAKNESS? NO . CARDIOLOGY: DO YOU HAVE A PACEMAKER OR DEFIBRILLATOR? NO . RESPIRATORY: HAVE YOU BEEN SICK IN THE PAST WEEK? NO . FEVER NO . FLU LIKE SYMPTOMS? NO . COUGH NO . INTEGUMENTARY: DO YOU HAVE ANY RASHES OR OPEN SORES? YES, WOUND UNDER STOMACH FOLD / DEBRIDED ON SUNDAY . ALLERGIC/IMMUNO: ARE YOU ALLERGIC TO SHELLFISH OR IV DYE? NO . ANY NEW ALLERGIES? NO . PSYCHIATRIC: DO YOU HAVE THOUGHTS OF HURTING YOURSELF OR SOMEONE ELSE? NO . ARE YOU ABUSED, NEGLECTED, OR IN AN UNSAFE ENVIRONMENT? NO . ENDOCRINOLOGY: ARE YOU DIABETIC? NO . OTHER: DO YOU NEED ANY PRESCRIPTIONS? UNSURE . IF YES, PLEASE LIST: DO YOU STILL WANT ME ON MORPHINE?? . ANY NEW PROBLEMS WITH YOUR MEDICATIONS? NO . WHEN DID YOU LAST EAT? ____ . WHEN DID YOU LAST DRINK? ____ . WHAT DID YOU LAST DRINK? ____ . NAME OF PERSON DRIVING YOU HOME? ____ . DO YOU HAVE ANY OTHER QUESTIONS OR CONCERNS NO . REVIEWED BY: PROVIDER: ROSEMARY RANDOLPH . VITAL SIGNS WT 340 LBS, HT 65 IN, BMI 56.57 INDEX, BP 144/71 MM HG, HR 81 /MIN, RR 20 /MIN, TEMP 98.7 F, OXYGEN SAT % 92%, NA INITIALS SC 09:14, REVIEWED BY: NL. EXAMINATION GENERAL EXAMINATION: GENERAL APPEARANCE:MORBIDLY OBESE. HEENT:HEAD:, NORMOCEPHALIC, EYES:, EYES NORMAL, NOSE:, NOSE CLEAR, THROAT: NORMAL. LUNGS:LUNG SOUNDS ARE CLEAR. HEART:HEART RATE REGULAR. ABDOMEN:SOFT AND NOT TENDER.MORBIDLY OBESE. MUSCULOSKELETAL:*. LUMBAR SACRAL SPINEMUSCLE STRENGTH TESTING 5/5 BLE. PALPATION: +FOR PAIN OVER L/S SPINE. + FOR PAIN OVER L/S PARASPINALS. THORACIC SPINENEGATIVE FOR PAIN WITH PALPATION OF THORACIC SPINE. NEGATIVE FOR PAIN WITH PALPATION OF THORACIC PARASPINAL. CERVICALNEGATIVE FOR PAIN WITH PALPATION OF CERVICAL SPINE. NEGATIVE FOR PAIN WITH PALPATION OF CERVICAL PARASPINALS. NEGATIVE FOR PAIN WITH PALPATION OF TRAPEZIUS BILAT. SKIN:NORMAL, NO RASH. NEUROLOGIC EXAM:ALERT AND ORIENTED X 3, DTRS 1-2+ IN ALL 4 EXTREMITIES, DENIES UPPER EXTREMETIES SENSORY LOSS, DENIES LOWER EXTREMETIES SENSORY LOSS. DIAGNOSTIC: MRI L/S SPINE-11/25/2014-MULTILEVEL FACET ARTHROPATHY. 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 PROCEDURE CODES FA211 ESTABILISHED PATIENT [facility] CHARGE DISPOSITION & COMMUNICATION FOLLOW UP 2 WEEKS (REASON: MED MANANGEMENT) ELECTRONICALLY SIGNED BY AGUSTÍN PRIEST ON 12/13/2016 AT 03:18 PM EDT DISCLAIMER : THIS IS A VISIT SUMMARY EXTRACTED FROM THE [employer] CHART. IT IS NOT A COPY OF THE [employer] PROGRESS NOTE. DINA
== END ==
LOC: M PAIN 09:00
PROVIDERS: ATTEND Nurse Practitioner Family
DX: M47.16 Other spondylosis with myelopathy, lumbar region (principal); M06.9 Rheumatoid arthritis, unspecified; Z79.891 Long term (current) use of opiate analgesic; Z79.899 Other long term (current) drug therapy; Z79.82 Long term (current) use of aspirin; Z88.0 Allergy status to penicillin; Z88.2 Allergy status to sulfonamides

== ENCOUNTER → 2016-12-27 | Outpatient (CLI) | payer BC ==
[~2016-12-27] MED LIST changes: +CITA20TA4 PO; +CLOTPOW; -FOLI1TAB2 PO; +FOLI1TAB4 PO; +PLAV1TAB2 PO; -PLAV75TA38 PO; +SIMV20TA2 PO; +VENTAER; -VITA100037 PO; +VITA100067 PO; +VITA1CAP40 PO
--- NOTE | 2016-12-27 23:50 | ECWPNPC ---
PATIENT NAME: GEOFFREY PURI : 1970 GENDER: FEMALE VISIT DATE: 12/27/2016 DISCHARGE DATE: 12/27/16 1014 VISIT LOCKED DATE TIME: PHYSICIAN: ROSEMARY DAVE RESOURCE: ROSEMARY DAVE REASON FOR APPOINTMENT 1. MED MANANGEMENT HISTORY OF PRESENT ILLNESS HISTORY OF PRESENT ILLNESS: HERE FOR F/U OF CHRONIC LOW BACK PAIN.RATING PAIN VAS 6/10.PAIN IS LOCATED ACROSS LOW BACK.PAIN IS AGGREVATED BY STANDING AND RELIEVED SOMEWHAT WITH REST.REPORTS THAT MORPHINE 15MG DOES NOT HELP PAIN AND CAUSES HEAD TO BE FOGGED.HAS TRIALED MULTIPLE OPIODS TO INCLUDE HYDROCODONE AND OXYCODONE THAT WERE INEFFECTIVE.DISCUSSED TREATMENT OPTIONS.CURRENTLY BEING TREATED FOR PHLEBITIS WITH ANTIBIOTIC.ATTENDS WOUND CLINIC FOR ABDOMINAL WOUND DEBRIDEMENT.BUTRANS PATCH PRESCRIBED AT LAST VISIT IS NOT COVERED BY HER INSURANCE.DISCUSSED TRIAL OF FENTANYL PATCH. PAIN THE PATIENT DESCRIBES THE PAIN... THE PATIENT DESCRIBES THE PAIN... FALL RISK SCREENING: SCREENING :NO FALLS IN THE PAST YEAR CURRENT MEDICATIONS TAKING TERBINAFINE 1 % CREAM TOPICAL TO FEET EXTERNALLY DAILY TAKING HIBICLENS 4 % LIQUID DIRECTED EXTERNALLY , NOTES: USES ONCE A WEEK TAKING DILANTIN 100 MG CAPSULE 7 CAPS ORALLY DAILY TAKING ASPIRIN EC 81 MG TABLET DELAYED RELEASE 1 TABLET ORALLY ONCE A DAY TAKING DRISDOL 03476 UNIT CAPSULE 1 CAPSULE ORALLY THREE TIMES A WEEK TAKING ALBUTEROL 0.083% AEROSOL SOLUTION 3 ML INHALATION Q6H PRN TAKING CLOPIDOGREL BISULFATE 75 MG TABLET 1 TABLET ORALLY ONCE A DAY TAKING ALBUTEROL SULFATE HFA 108 (90 BASE) MCG/ACT AEROSOL SOLUTION 2 PUFFS INHALATION QID PRN TAKING OMEGA 3 1000 MG CAPSULE 1 CAPSULE ORALLY DAILY TAKING NYSTATIN [id number] UNIT/GM POWDER 1 TO AFFECTED AREA EXTERNALLY TO ABDOMEN TWICE A DAY, NOTES: USES NEEDED TAKING BISOPROLOL FUMARATE 10 MG TABLET 1 TABLET ORALLY ONCE A DAY TAKING LASIX 20 MG TABLET 1 TABLET ORALLY ONCE A DAY TAKING SPIRIVA HANDIHALER 18 MCG CAPSULE 1 CAPSULE INHALATION ONCE A DAY TAKING AMMONIUM LACTATE 12 % LOTION 1 APPLICATION TO AFFECTED AREA EXTERNALLY TO RASH ON ARMS, NECK TWICE A DAY TAKING METRONIDAZOLE 0.75 % LOTION 1 APPLICATION TO AFFECTED AREA EXTERNALLY TO FACE TWICE A DAY TAKING ZOCOR 20 MG TABLET 1 TAB ORALLY DAILY TAKING CLOTRIMAZOLE-BETAMETHASONE 1-0.05 % CREAM 1 APPLICATION TO AFFECTED AREA EXTERNALLY TWICE A DAY TAKING CELEXA 40 MG TABLET 1 TAB ORALLY ONCE A DAY TAKING LANSOPRAZOLE 30 MG CAPSULE DELAYED RELEASE 1 CAPSULE ORALLY ONCE A DAY TAKING LISINOPRIL 10 MG TABLET 1 TABLET ORALLY ONCE A DAY TAKING CLINDAMYCIN HCL 300 MG CAPSULE 1 CAPSULE ORALLY EVERY 8 HRS TAKING BUTRANS 10 MCG/HR PATCH WEEKLY 1 PATCH TO SKIN TRANSDERMAL Q7 DAYS=MDD, NOTES: NEEDS PRIOR AUTH TAKING ATIVAN 1 MG TABLET 1 TABLET NEEDED ORALLY TID PRN MDD=3 NOT-TAKING MORPHINE SULFATE 15 MG TABLET 1/2-1 ORALLY EVERY 8 HRS PRN MDD3 NOT-TAKING CLINDAMYCIN HCL 150 MG CAPSULE 1 CAPSULE ORALLY EVERY 6 HRS NOT-TAKING TYLENOL 325 MG TABLET 1 TABLET NEEDED ORALLY EVERY 6 HRS NOT-TAKING FOLIC ACID 1 MG TABLET 1 TABLET ORALLY BID NOT-TAKING PREDNISONE 5 MG TABLET 1 TABLET ORALLY ONCE A DAY--TAPER PACK MEDICATION LIST REVIEWED AND RECONCILED WITH THE PATIENT PAST MEDICAL HISTORY SEIZURE DISORDER S/P (BRAIN SURGERY) - HAS BEEN SEIZURE FREE SINCE TUMOR REMOVED TELOGEN EFFLUVIM (HAIR LOSS) DEPRESSION DRUG OVERDOSE 05/09 DEPRESSION CONVULSIONS HYPERLIPIDEMIA HYPERTENSION, ESSENTIAL INSOMNIA, UNSPECIFIED VITAMIN D INSUFFICIENCY OBSTRUCTIVE SLEEP APNEA (ADULT) (PEDIATRIC) CARPAL TUNNEL SYNDROME, UNSPECIFIED UPPER LIMB PERIODIC LIMB MOVEMENT DISORDER NICOTINE DEPENDENCE, CIGARETTES, UNCOMPLICATED ANXIETY DISORDER GASTROESOPHAGEAL REFLUX OTHER SPECIFIED SYMPTOMS AND SIGNS INVOLVING THE DIGESTIVE SYSTEM AND ABDOMEN MORBID OBESITY BODY MASS INDEX (BMI) OF 50-59.9 IN ADULT OTHER SHELTER (CURRENT) DRUG THERAPY MULTIPLE CHRONIC DISEASES PVD (PERIPHERAL VASCULAR DISEASE) FATTY LIVER EDEMA, UNSPECIFIED OTHER FATIGUE HYPERSOMNIA, UNSPECIFIED SNORING ROSACEA HISTORY OF HIDRADENITIS SUPPURATIVA TEAR OF RIGHT ROTATOR CUFF, UNSPECIFIED TEAR EXTENT CORTISONE INJECTION RIGHT SHOULDER- DR. NESBITT COPD BACK PAIN NECK PAIN RHEUMATOID ARTHRITIS PHLEBITUS TO LEFT LEG ALLERGIES PENICILLIN (FOR ALLERGIES USE ONLY): CANT BREATH: ALLERGY SULFATES: RASH: ALLERGY REVIEW OF SYSTEMS REVIEWED BY: PROVIDER: ROSEMARY RANDOLPH . CONSTITUTIONAL: ANY CHANGE IN YOUR MEDICAL CONDITION? YES, PHLEBITIS LEFT LEG / FU WITH MD AND IS IMPROVING . CHILLS NO . FEVER NO . INFECTION: DO YOU HAVE NEW INFECTIONS? NO . DO YOU HAVE HISTORY OF MRSA? NO . MUSCULOSKELETAL: ANY NEW PATTERNS OF PAIN OR NUMBNESS? YES NUMB AND TINGLY ON THE RIGHT FOOT AND TOES . GASTROENTEROLOGY: ANY NEW CHANGE IN BOWEL CONTROL? NO . GENITOURINARY: ANY NEW CHANGE IN BLADDER CONTROL? NO . IS THERE A CHANCE YOU COULD BE ? NO . HEMATOLOGY/LYMPH: DO YOU TAKE ANY BLOOD THINNERS? (FOR EXAMPLE- COUMADIN, PLAVIX, AGGRENOX, PLATEL, PRADAXA, OR XARELTO) YES . WHEN WAS YOUR LAST DOSE? DATE: TIME: . NEUROLOGY: HAVE YOU FALLEN IN THE PAST 6 MONTHS? NO . ANY NEW EXTREMITY NUMBNESS OR WEAKNESS? NO . CARDIOLOGY: DO YOU HAVE A PACEMAKER OR DEFIBRILLATOR? NO . RESPIRATORY: HAVE YOU BEEN SICK IN THE PAST WEEK? NO . FEVER NO . FLU LIKE SYMPTOMS? NO . COUGH NO . INTEGUMENTARY: DO YOU HAVE ANY RASHES OR OPEN SORES? NO . ALLERGIC/IMMUNO: ARE YOU ALLERGIC TO SHELLFISH OR IV DYE? NO . ANY NEW ALLERGIES? NO . PSYCHIATRIC: DO YOU HAVE THOUGHTS OF HURTING YOURSELF OR SOMEONE ELSE? NO . ARE YOU ABUSED, NEGLECTED, OR IN AN UNSAFE ENVIRONMENT? NO . ENDOCRINOLOGY: ARE YOU DIABETIC? NO . OTHER: DO YOU NEED ANY PRESCRIPTIONS? YES . IF YES, PLEASE LIST: [place]ANS NEEDS PRIOR AUTH/ PT CURRENTLY WITH NO PAIN MEDICATION . ANY NEW PROBLEMS WITH YOUR MEDICATIONS? NO . WHEN DID YOU LAST EAT? ____ . WHEN DID YOU LAST DRINK? ____ . WHAT DID YOU LAST DRINK? ____ . NAME OF PERSON DRIVING YOU HOME? ____ . DO YOU HAVE ANY OTHER QUESTIONS OR CONCERNS NO . VITAL SIGNS WT 345.0 LBS, HT 65 IN, BMI 57.40 INDEX, BP 118/67 MM HG, HR 82 /MIN, RR 18 /MIN, TEMP 98.2 F, OXYGEN SAT % 92%, NA INITIALS TL 0939, REVIEWED BY: NL. EXAMINATION GENERAL EXAMINATION: GENERAL APPEARANCE:MORBIDLY OBESE. HEENT:HEAD:, NORMOCEPHALIC, EYES:, EYES NORMAL, NOSE:, NOSE CLEAR, THROAT: NORMAL. LUNGS:LUNG SOUNDS ARE CLEAR. HEART:HEART RATE REGULAR. ABDOMEN:SOFT AND NOT TENDER.MORBIDLY OBESE. MUSCULOSKELETAL:*. LUMBAR SACRAL SPINEMUSCLE STRENGTH TESTING 5/5 BLE. PALPATION: +FOR PAIN OVER L/S SPINE. + FOR PAIN OVER L/S PARASPINALS. THORACIC SPINENEGATIVE FOR PAIN WITH PALPATION OF THORACIC SPINE. NEGATIVE FOR PAIN WITH PALPATION OF THORACIC PARASPINAL. CERVICALNEGATIVE FOR PAIN WITH PALPATION OF CERVICAL SPINE. NEGATIVE FOR PAIN WITH PALPATION OF CERVICAL PARASPINALS. NEGATIVE FOR PAIN WITH PALPATION OF TRAPEZIUS BILAT. SKIN:NORMAL, NO RASH. NEUROLOGIC EXAM:ALERT AND ORIENTED X 3, DTRS 1-2+ IN ALL 4 EXTREMITIES, DENIES UPPER EXTREMETIES SENSORY LOSS, DENIES LOWER EXTREMETIES SENSORY LOSS. DIAGNOSTIC: MRI L/S SPINE-11/25/2014-MULTILEVEL FACET ARTHROPATHY. 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 IT IS NOT A COPY OF THE [employer] PROGRESS NOTE. MTDD
== END ==
LOC: M PAIN 09:40
PROVIDERS: ATTEND Nurse Practitioner Family
DX: M47.16 Other spondylosis with myelopathy, lumbar region (principal); M06.9 Rheumatoid arthritis, unspecified; M54.9 Dorsalgia, unspecified; G89.29 Other chronic pain; Z79.891 Long term (current) use of opiate analgesic; Z79.899 Other long term (current) drug therapy; Z79.82 Long term (current) use of aspirin; Z88.0 Allergy status to penicillin; Z88.2 Allergy status to sulfonamides; F32.9 Major depressive disorder, single episode, unspecified; R56.9 Unspecified convulsions; E78.5 Hyperlipidemia, unspecified; I10 Essential (primary) hypertension; E55.9 Vitamin D deficiency, unspecified; G47.33 Obstructive sleep apnea (adult) (pediatric); K21.9 Gastro-esophageal reflux disease without esophagitis; F41.9 Anxiety disorder, unspecified; I73.9 Peripheral vascular disease, unspecified

== ENCOUNTER → 2016-12-29 | Outpatient (CLI) | payer BC ==
--- NOTE | 2016-12-29 13:58 | REP ---
Clinical: phlebitis. Technique: Billy scale and color Doppler evaluation using linear high frequency transducer. Findings: Ultrasound examination of the left lower extremity deep venous structures from the common femoral vein to the popliteal vein demonstrates normal compressibility flow and wave patterns in response to respiration and augmentation. There is no evidence for deep venous thrombosis. 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 Subcutaneous edema. Impression: No evidence for deep venous thrombosis. Signed by Kenton Troncoso MD 12/29/2016 01:49 P
== END ==
LOC: M RAD 12:39
PROVIDERS: ATTEND Family Medicine
DX: I80.9 Phlebitis and thrombophlebitis of unspecified site (principal)

== ENCOUNTER → 2017-01-01 | Outpatient (CLI) | payer BC ==
--- NOTE | 2017-01-03 07:20 | REP ---
MR BRAIN WITHOUT CONTRAST: HISTORY: Convulsions. COMPARISON: 05/25/2008 A small area of increased signal intensity on T2-weighted images is present in the posterior right temporal lobe. There is dilatation of the overlying cortical sulci. This represents encephalomalacia. Several punctate areas of increased signal intensity on T2-weighted images are present in the subcortical white matter. This represents small vessel ischemic disease. There is no intraparenchymal hemorrhage, acute infarct, mass or midline shift. The ventricular system is normal in appearance. There is no extracerebral collection. The sinuses are clear. IMPRESSION: 1. Small area of right temporal lobe encephalomalacia. 2. Minimal small vessel ischemic disease. Signed by Bryant Rios MD 01/03/2017 09:41 A
== END ==
LOC: M PLARAD 12:39
PROVIDERS: ATTEND Family Medicine
DX: I80.9 Phlebitis and thrombophlebitis of unspecified site (principal); R56.9 Unspecified convulsions; Z86.011 Personal history of benign neoplasm of the brain

== ENCOUNTER → 2017-02-08 | Outpatient (REF) | payer BC | LOC: M SFHCCLAY 15:28 | PROVIDERS: ATTEND Family Medicine | DX: R56.9 Unspecified convulsions (principal); M06.9 Rheumatoid arthritis, unspecified ==

== ENCOUNTER → 2017-02-16 | Outpatient (REF) | payer BC ==
[2017-02-16 11:53] LABS: MEAN CORPUSCULAR HEMOGLOBIN 31.6 pg (27.0-33.0); MEAN CORPUSCULAR HGB CONC 33.8 g/dl (32.0-36.5); MEAN CORPUSCULAR VOLUME 93.6 fl (80.0-96.0); WHITE BLOOD COUNT 7.2 K/mm3 (4.0-10.0)
== END ==
LOC: M SFHCCLAY 07:35
PROVIDERS: ATTEND Family Medicine
DX: M06.9 Rheumatoid arthritis, unspecified (principal); R56.9 Unspecified convulsions

== ENCOUNTER → 2017-03-29 | Outpatient (CLI) | payer BC ==
--- NOTE | 2017-03-30 00:40 | ECWPNPC ---
PATIENT NAME: GEOFFREY PURI : 1970 GENDER: FEMALE VISIT DATE: 03/29/2017 DISCHARGE DATE: 03/29/17 1042 VISIT LOCKED DATE TIME: PHYSICIAN: ROSEMARY DAVE PHYSICIAN PAGER NO: [phone] RESOURCE: ROSEMARY DAVE REASON FOR APPOINTMENT 1. BACK/LEGS HISTORY OF PRESENT ILLNESS HISTORY OF PRESENT ILLNESS: HERE FOR F/U AND MANGEMENT OF CHRONIC LOW BACK PAIN AND BILATERAL LEG PAIN.HAS TRIALED MULTIPLE DIFFERENT MEDICATIONS BOTH NARCOTIC AND NON -NARCOTIC.UNFORTUNATLEY THEY DIDNT HELP OR WERENT COVERED BY HER INSURANCE.SHE IS SCHEDULED FOR RIGHT SHOULDER SURGERY IN A FEW WEEKS.ALSO GASTRIC BYPASS SURGERY IS PENDING.SHE IS MORBIDLY OBESE WITH MULTIPLE MEDICAL ISSUES TO INCLUDE NON COMPLIANT SLEEP APNEA.I HAVE RUN OUT OF MEDICATION IDEAS.SHE IS VERY DISCOURAGED AND WEEPY.WE DISCUSSED MENTAL HEALTH EVALUATION AND SHE HAS BEEN TOLD ABOUT WALK IN HOURS AT [facility] IN THE PAST BUT FEELS SHE CANT STAND SITTING FOR ANY LENGTH OF TIME.MARQUIS REASSURED HER THAT IT SHOULDNT BE A LONG WAIT AND SHE IS SOMEWHAT RECEPTIVE.DENIES ACTIVE SUICIDAL THOUGHTS. PAIN THE PATIENT DESCRIBES THE PAIN... FALL RISK SCREENING: SCREENING :NO FALLS IN THE PAST YEAR CURRENT MEDICATIONS TAKING METHOTREXATE 2.5 MG TABLET ORALLY TAKING FOLIC ACID 1 MG TABLET 1 TABLET ORALLY BID TAKING ASPIRIN EC 81 MG TABLET DELAYED RELEASE 1 TABLET ORALLY ONCE A DAY TAKING DRISDOL 19351 UNIT CAPSULE 1 CAPSULE ORALLY THREE TIMES A WEEK TAKING ALBUTEROL 0.083% AEROSOL SOLUTION 3 ML INHALATION Q6H PRN TAKING CLOPIDOGREL BISULFATE 75 MG TABLET 1 TABLET ORALLY ONCE A DAY TAKING OMEGA 3 1000 MG CAPSULE 1 CAPSULE ORALLY DAILY TAKING BISOPROLOL FUMARATE 10 MG TABLET 1 TABLET ORALLY ONCE A DAY TAKING METRONIDAZOLE 0.75 % LOTION 1 APPLICATION TO AFFECTED AREA EXTERNALLY TO FACE TWICE A DAY PRN TAKING CELEXA 40 MG TABLET 1 TAB ORALLY ONCE A DAY TAKING LISINOPRIL 10 MG TABLET 1 TABLET ORALLY ONCE A DAY TAKING ALBUTEROL SULFATE HFA 108 (90 BASE) MCG/ACT AEROSOL SOLUTION 2 PUFFS INHALATION QID PRN TAKING LASIX 20 MG TABLET 1 TABLET ORALLY ONCE A DAY TAKING VENTOLIN HFA 108 (90 BASE) MCG/ACT AEROSOL SOLUTION INHALE 2 PUFFS BY MOUTH FOUR TIMES A DAY NEEDED TAKING SPIRIVA HANDIHALER 18 MCG CAPSULE 1 CAPSULE INHALATION ONCE A DAY TAKING AMMONIUM LACTATE 12 % LOTION 1 APPLICATION TO AFFECTED AREA EXTERNALLY TO RASH ON ARMS, NECK TWICE A DAY PRN TAKING HYDROCORTISONE VALERATE 0.2 % CREAM 1 APPLICATION TO AFFECTED AREA EXTERNALLY TWICE A DAY TAKING HYDROXYZINE HCL 25 MG TABLET 1 TABLET NEEDED ORALLY EVERY 8 HRS, PRN ITCH TAKING ATIVAN 1 MG TABLET 1 TABLET NEEDED ORALLY TID PRN MDD=3, NOTES: REF.# [id number] TAKING ZOCOR 20 MG TABLET 1 TAB ORALLY DAILY TAKING DILANTIN 100 MG CAPSULE 6 CAPLETS ORALLY DAILY TAKING OMEPRAZOLE 40 MG CAPSULE DELAYED RELEASE 1 CAPSULE ORALLY ONCE A DAY NOT-TAKING NYSTATIN 108756 UNIT/GM POWDER 1 TO AFFECTED AREA EXTERNALLY TO ABDOMEN TWICE A DAY, NOTES: USES NEEDED NOT-TAKING BUTRANS 10 MCG/HR PATCH WEEKLY 1 PATCH TO SKIN TRANSDERMAL Q7 DAYS=MDD, NOTES: NEEDS PRIOR AUTH NOT-TAKING MORPHINE SULFATE 15 MG TABLET 1/2-1 ORALLY EVERY 8 HRS PRN MDD3 NOT-TAKING CLINDAMYCIN HCL 150 MG CAPSULE 1 CAPSULE ORALLY EVERY 6 HRS NOT-TAKING TYLENOL 325 MG TABLET 1 TABLET NEEDED ORALLY EVERY 6 HRS NOT-TAKING PREDNISONE 5 MG TABLET 1 TABLET ORALLY ONCE A DAY--TAPER PACK UNKNOWN TERBINAFINE 1 % CREAM TOPICAL TO FEET EXTERNALLY DAILY MEDICATION LIST REVIEWED AND RECONCILED WITH THE PATIENT PAST MEDICAL HISTORY SEIZURE DISORDER S/P (BRAIN SURGERY) - HAS BEEN SEIZURE FREE SINCE TUMOR REMOVED TELOGEN EFFLUVIM (HAIR LOSS) DEPRESSION DRUG OVERDOSE 05/09 DEPRESSION CONVULSIONS HYPERLIPIDEMIA HYPERTENSION, ESSENTIAL INSOMNIA, UNSPECIFIED VITAMIN D INSUFFICIENCY OBSTRUCTIVE SLEEP APNEA (ADULT) (PEDIATRIC) CARPAL TUNNEL SYNDROME, UNSPECIFIED UPPER LIMB PERIODIC LIMB MOVEMENT DISORDER NICOTINE DEPENDENCE, CIGARETTES, UNCOMPLICATED ANXIETY DISORDER GASTROESOPHAGEAL REFLUX OTHER SPECIFIED SYMPTOMS AND SIGNS INVOLVING THE DIGESTIVE SYSTEM AND ABDOMEN MORBID OBESITY BODY MASS INDEX (BMI) OF 50-59.9 IN ADULT OTHER SUPERVISOR MACHINING (CURRENT) DRUG THERAPY MULTIPLE CHRONIC DISEASES PVD (PERIPHERAL VASCULAR DISEASE) FATTY LIVER EDEMA, UNSPECIFIED OTHER FATIGUE HYPERSOMNIA, UNSPECIFIED SNORING ROSACEA HISTORY OF HIDRADENITIS SUPPURATIVA TEAR OF RIGHT ROTATOR CUFF, UNSPECIFIED TEAR EXTENT CORTISONE INJECTION RIGHT SHOULDER- DR. NESBITT COPD BACK PAIN NECK PAIN RHEUMATOID ARTHRITIS PHLEBITUS TO LEFT LEG ALLERGIES PENICILLIN (FOR ALLERGIES USE ONLY): CANT BREATH: ALLERGY SULFATES: RASH: ALLERGY SURGICAL HISTORY EXCISION OF BENIGN BRAIN TUMOR 1986 1986 TUBAL LIGATION CARP TUNNEL LEFT 05/19/14 CARP TUNNEL RIGHT 08/06/14 3 STENTS PLACED - RIGHT COMMON ILIAC ARTERY, AND 2 IN LEFT COMMON ILIIAC ARTERIES - DR. HUTCHINSON 05/11/15 RIGHT ROTATOR CUFF 04/04/16 SOCIAL HISTORY GENERAL: TOBACCO USE ARE YOU A:CURRENT SMOKER ARE YOU INTERESTED IN QUITTING?THINKING ABOUT QUITTING PATIENT BOUGHT PATCHES TO HELP QUIT COUNSELED THE PATIENT ON SMOKING CESSATION, EDUCATION [id number]/28/2017 PATIENT HAS TRIED THE PATCHES BUT CAN'T MAKE THE WHOLE DAY W/O SMOKING HOW MANY CIGARETTES A DAY DO YOU SMOKE?6-10 HOW SOON AFTER YOU WAKE UP DO YOU SMOKE YOUR FIRST CIGARETTE?AFTER 60 MIN HOW OFTEN DO YOU SMOKE CIGARETTES?SOME DAYS, BUT NOT EVERY DAY PATIENT COUNSELED ON THE DANGERS OF TOBACCO USE AND URGED TO QUIT:03/13/2017 SMOKING CESSATION INFORMATION GIVEN03/13/2017 VAPORNO E-CIGARETTENO LUNG CANCER SCREENING SMOKING STATUS:CURRENT SMOKER IS THE PATIENT BETWEEN THE AGE OF 53 AND 75?NO BMI CARE GOAL FOLLOW-UP ABOVE NORMAL BMI FOLLOW-UPDIETARY MANAGEMENT EDUCATION, GUIDANCE, AND COUNSELING ALCOHOL SCREENING DID YOU HAVE A DRINK CONTAINING ALCOHOL IN THE PAST YEAR?NO POINTS0 INTERPRETATIONNEGATIVE RECREATIONAL DRUG USE DRUG USE?NO CAFFEINE CAFFEINE USE?YES HOW OFTEN AND HOW MUCH? 2 CUPS OF COFFEE PER DAY, 1 SODA PER WEEK SEXUAL HX HAD SEX IN THE LAST 12 MONTHS (VAGINAL, ORAL, OR ANAL)?NO HAVE YOU EVER HAD AN STD?NO LMP:SEPTEMBER 2016 HIV / HEP-C SCREENING HIV TEST OFFERED TO PATIENT:YES DATE OFFERED:03/13/2017 TEST ACCEPTED:NO REASON:PATIENT DECLINED CONSENT ON FILE HEP-C TEST OFFERED TO PATIENT:YES DATE OFFERED:03/13/2017 TEST ACCEPTED:NO REASON:PATIENT DECLINED CONSENT ON FILE OCCUPATION: [employer], CURRENTLY OUT ON COMP.. DIET: REGULAR. EXERCISE: NO REGULAR EXERCISE. MARITAL STATUS: . OTHERS AT HOME: SPOUSE. PETS: 2 CATS. HOAHAOISM NO SIKHISM BELIEFS THAT WOULD IMPACT HEALTH CARE. LANGUAGE [place]DIAN. EDUCATION HIGH SCHOOL. LEARNING BARRIERS / SPECIAL NEEDS CHANGE FROM LAST VISIT?NO 02/08/2017 BARRIERS TO LEARNING?NO HEARING IMPAIRED?NO VISION IMPAIRED?YES :CORRECTIVE LENSES COGNITIVELY IMPAIRED?NO READINESS TO LEARN?YES LEARNING PREFERENCES?NO LEARNING CAPABILITIES PRESENT?YES EMOTIONAL BARRIERS?NO SPECIAL DEVICES?YES :CANE GOLF CART REPAIRER NEEDED?NO PAIN CLINIC PFS, CLERGY, PUBLIC HEALTH REFERRALS HAS THE PATIENT BEEN EDUCATED REGARDING HIS/HER PLAN OF CARE?YES HAS THE PATIENT BEEN EDUCATED REGARDING PAIN, THE RISK FOR PAIN, THE IMPORTANCE OF EFFECTIVE PAIN MANAGEMENT, AND THE PAIN ASSESSMENT PROCESS?YES PATIENT: ____. ADVANCE DIRECTIVES HEALTH CARE PROXY?NO WOULD YOU LIKE MORE INFORMATION?YES INFORMATION GIVEN 02/08/2017 DO YOU HAVE A DNR?NO WOULD YOU LIKE MORE INFORMATION?NO LIVING WILL?NO WOULD YOU LIKE MORE INFORMATION?NO POWER OF ASSESSMENT TECHNICIAN?NO WOULD YOU LIKE MORE INFORMATION?NO TRAVEL OUTSIDE US: NO TRAVEL OUTSIDE THE US IN THE LAST 21 DAYS.. HOUSING: OWNS HOME. DOMESTIC VIOLENCE NONE. HOSPITALIZATION/MAJOR DIAGNOSTIC PROCEDURE SURGERY DRUG OVERDOSE 2007 REVIEW OF SYSTEMS REVIEWED BY: PROVIDER: ROSEMARY RANDOLPH . CONSTITUTIONAL: ANY CHANGE IN YOUR MEDICAL CONDITION? NO . CHILLS NO . FEVER NO . INFECTION: DO YOU HAVE NEW INFECTIONS? NO . DO YOU HAVE HISTORY OF MRSA? NO . MUSCULOSKELETAL: ANY NEW PATTERNS OF PAIN OR NUMBNESS? YES . GASTROENTEROLOGY: ANY NEW CHANGE IN BOWEL CONTROL? NO . GENITOURINARY: ANY NEW CHANGE IN BLADDER CONTROL? NO . IS THERE A CHANCE YOU COULD BE ? NO . HEMATOLOGY/LYMPH: DO YOU TAKE ANY BLOOD THINNERS? (FOR EXAMPLE- COUMADIN, PLAVIX, AGGRENOX, PLATEL, PRADAXA, OR XARELTO) NO . WHEN WAS YOUR LAST DOSE? DATE: TIME: 03/29/17@0730 <03/29/17@0730> . NEUROLOGY: HAVE YOU FALLEN IN THE PAST 6 MONTHS? NO . ANY NEW EXTREMITY NUMBNESS OR WEAKNESS? NO . CARDIOLOGY: DO YOU HAVE A PACEMAKER OR DEFIBRILLATOR? NO . RESPIRATORY: HAVE YOU BEEN SICK IN THE PAST WEEK? NO . FEVER NO . FLU LIKE SYMPTOMS? NO . COUGH NO . INTEGUMENTARY: DO YOU HAVE ANY RASHES OR OPEN SORES? YES . ALLERGIC/IMMUNO: ARE YOU ALLERGIC TO SHELLFISH OR IV DYE? NO . ANY NEW ALLERGIES? NO . PSYCHIATRIC: DO YOU HAVE THOUGHTS OF HURTING YOURSELF OR SOMEONE ELSE? NO . ARE YOU ABUSED, NEGLECTED, OR IN AN UNSAFE ENVIRONMENT? NO . ENDOCRINOLOGY: ARE YOU DIABETIC? NO . OTHER: DO YOU NEED ANY PRESCRIPTIONS? YES . IF YES, PLEASE LIST: ____SOMETHING FOR PAIN THAT WORKS . ANY NEW PROBLEMS WITH YOUR MEDICATIONS? NO . WHEN DID YOU LAST EAT? ____ . WHEN DID YOU LAST DRINK? ____ . WHAT DID YOU LAST DRINK? ____ . NAME OF PERSON DRIVING YOU HOME? ____ . DO YOU HAVE ANY OTHER QUESTIONS OR CONCERNS YES, I HAVE SOME QUESTIONS . VITAL SIGNS WT 343.6 LBS, HT 65 IN, BMI 57.17 INDEX, BP 149/61 MM HG, HR 91 /MIN, RR 20 /MIN, TEMP 98.2 F, OXYGEN SAT % 94, SAFE IN ENV? (Y/N) YES, NA INITIALS MP 0943, REVIEWED BY: KEELY. EXAMINATION GENERAL EXAMINATION: GENERAL APPEARANCE:MORBIDLY OBESE. HEENT:HEAD:, NORMOCEPHALIC, EYES:, EYES NORMAL, NOSE:, NOSE CLEAR, THROAT: NORMAL. LUNGS:LUNG SOUNDS ARE CLEAR. HEART:HEART RATE REGULAR. ABDOMEN:SOFT AND NOT TENDER.MORBIDLY OBESE. MUSCULOSKELETAL:*. LUMBAR SACRAL SPINEMUSCLE STRENGTH TESTING 5/5 BLE. PALPATION: +FOR PAIN OVER L/S SPINE. + FOR PAIN OVER L/S PARASPINALS. THORACIC SPINENEGATIVE FOR PAIN WITH PALPATION OF THORACIC SPINE. NEGATIVE FOR PAIN WITH PALPATION OF THORACIC PARASPINAL. CERVICALNEGATIVE FOR PAIN WITH PALPATION OF CERVICAL SPINE. NEGATIVE FOR PAIN WITH PALPATION OF CERVICAL PARASPINALS. NEGATIVE FOR PAIN WITH PALPATION OF TRAPEZIUS BILAT. SKIN:NORMAL, NO RASH. NEUROLOGIC EXAM:ALERT AND ORIENTED X 3, DTRS 1-2+ IN ALL 4 EXTREMITIES, DENIES UPPER EXTREMETIES SENSORY LOSS, DENIES LOWER EXTREMETIES SENSORY LOSS. DIAGNOSTIC: MRI L/S SPINE-11/25/2014-MULTILEVEL FACET ARTHROPATHY. 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 DISPOSITION & COMMUNICATION FOLLOW UP NO F/U NECESSARY ELECTRONICALLY SIGNED BY AGUSTÍN PRIEST ON 03/29/2017 AT 02:47 PM EDT DISCLAIMER : THIS IS A VISIT SUMMARY EXTRACTED FROM THE [facility] CHART. IT IS NOT A COPY OF THE [facility] PROGRESS NOTE. MTDD
== END ==
LOC: M PAIN 09:45
PROVIDERS: ATTEND Nurse Practitioner Family
DX: M47.16 Other spondylosis with myelopathy, lumbar region (principal); M06.9 Rheumatoid arthritis, unspecified; M54.5 Low back pain; G89.29 Other chronic pain; I10 Essential (primary) hypertension; E55.9 Vitamin D deficiency, unspecified; F32.9 Major depressive disorder, single episode, unspecified; E78.5 Hyperlipidemia, unspecified; F17.210 Nicotine dependence, cigarettes, uncomplicated; Z79.82 Long term (current) use of aspirin; Z79.899 Other long term (current) drug therapy; Z88.0 Allergy status to penicillin; Z88.2 Allergy status to sulfonamides

== ENCOUNTER → 2017-04-02 | Outpatient (REF) | payer BC | LOC: M SFHCCLAY 10:54 | PROVIDERS: ATTEND Nurse Practitioner | DX: N30.01 Acute cystitis with hematuria (principal) ==

== ENCOUNTER 2017-05-01 10:04 | Day surgery (SDC) | payer OTHER, BC ==
[~2017-05-01] VITALS: Ht 154.9 cm; Wt 156.0 kg
[~2017-05-01 10:04] MED LIST changes: -CLOTPOW; +LIDOCAINE 1% MDV 20ML VIAL SQ PRN; +LR 1,000 ML IV ONE; +VANCOMYCIN HCL 1,000 MG, VIAL MATE ADAPTER 1 EACH in D5W 250 ML IV ONE; -VENTAER
[2017-05-01] MEDS ORDERED: ROPIvacaine 0.5% 30 ML INJECTION (J2795) ONE (10:05)
[2017-05-01] MEDS ORDERED: LIDOCAINE 1% MDV 20ML VIAL ONE (10:05)
[2017-05-01] MEDS ORDERED: dexameTHASONE 10 MG/1 ML VIAL PRES.FREE (J1100) ONE (10:05)
[2017-05-01] MEDS ORDERED: VENTAER (11:03)
[2017-05-01] MEDS ORDERED: CLOTPOW (11:03)
[2017-05-01] MEDS ORDERED: ALBUTEROL SULFATE 2.5 MG/0.5 ML INH NEB SOLN INH ONE (12:00)
[2017-05-01] MEDS ORDERED: MIDAZOLAM INJ 2 MG/2 ML VIAL (J2250) As Ordered ONE ×2 (12:52→13:18)
[2017-05-01] MEDS ORDERED: fentaNYL 100 MCG/2 ML INJECTION (J3010) As Ordered ONE ×3 (12:52→17:37)
[2017-05-01] MEDS: MIDAZOLAM INJ 2 MG/2 ML VIAL (J2250) IV PRN ×2 (14:08→14:10)
[2017-05-01] MEDS: fentaNYL 100 MCG/2 ML INJECTION (J3010) IV PRN ×6 (14:08→18:32)
[2017-05-01] MEDS ORDERED: ROCURONIUM BROMIDE 50 MG/5 ML VIAL/SYRINGE As Ordered ONE (14:11)
[2017-05-01] MEDS ORDERED: LIDOCAINE 2% INJ 100 MG/5 ML SYRINGE As Ordered ONE (14:11)
[2017-05-01] MEDS ORDERED: PROPOFOL 200 MG/20 ML VIAL As Ordered ONE (14:11)
[2017-05-01] MEDS ORDERED: EPINEPHrine 1MG/ML INJ 30ML MD-VIAL As Ordered ONE (14:21)
[2017-05-01] MEDS ORDERED: PHENYLEPHRINE INJ 10MG/ML VIAL (J2370) As Ordered ONE ×2 (15:09→15:44)
[2017-05-01] MEDS ORDERED: GLYCOPYRROLATE INJ 0.2 MG/ML 2 ML VIAL As Ordered ONE (16:28)
[2017-05-01] MEDS ORDERED: NEOSTIGMINE 10 MG/10 ML VIAL (J2710) As Ordered ONE (16:28)
[2017-05-01] MEDS ORDERED: ONDANSETRON 4MG/2ML VIAL (J2405) As Ordered ONE (16:28)
[2017-05-01] MEDS ORDERED: LR 1,000 ML IV SCH (17:45)
[2017-05-01] MEDS ORDERED: NORCO, ANEXSIA 5/325MG TABLET (HYDROcodone/ACETAMINOPHEN) PO PRN (17:45)
[2017-05-01] MEDS ORDERED: ONDANSETRON 4MG/2ML VIAL (J2405) IV PRN (17:45)
[2017-05-01] MEDS ORDERED: MORPHINE 4 MG/ML 1ML SYRINGE IV PRN (17:45)
[2017-05-01] MEDS ORDERED: ALBUTEROL SULFATE 2.5 MG/0.5 ML INH NEB SOLN INH PRN (17:45)
[2017-05-01] MEDS: LR 1,000 ML IV SCH (17:45)
[2017-05-01 19:00] VITALS: BP 162/70
[2017-05-01 19:30] VITALS: BP 140/69
[2017-05-01] MEDS ORDERED: ALBUTEROL 90 MCG/ACT 8GM HFA INHALER INH PRN (19:30)
[2017-05-01] MEDS: NORCO, ANEXSIA 5/325MG TABLET (HYDROcodone/ACETAMINOPHEN) PO PRN (20:26)
[2017-05-01 20:30] VITALS: BP 140/67
[2017-05-01 21:30] VITALS: BP 145/68
[2017-05-01 22:30] VITALS: BP 140/65
[2017-05-01 23:30] VITALS: BP 135/60
[2017-05-02] MEDS: NORCO, ANEXSIA 5/325MG TABLET (HYDROcodone/ACETAMINOPHEN) PO PRN ×3 (00:35→09:28)
[2017-05-02 02:00] VITALS: BP 145/73
[2017-05-02 05:06] VITALS: O2SAT 92
[2017-05-02 06:00] VITALS: BP 167/77
[2017-05-02] MEDS: LR 1,000 ML IV SCH (06:04)
--- NOTE | 2017-05-02 15:18 | RO ---
DATE OF PROCEDURE: 05/01/2017 PREOPERATIVE DIAGNOSES: 1. Right shoulder acromioclavicular (AC) joint disruption. 2. Right shoulder biceps tendinitis. 3. Possible recurrent rotator cuff tear. 4. Morbid obesity with a body mass index (BMI) of 63. POSTOPERATIVE DIAGNOSES: 1. Right shoulder acromioclavicular (AC) joint disruption. 2. Right shoulder biceps tendinitis. 3. Right shoulder, upper border, subscap tendinitis. 4. Right shoulder rotator cuff repair, intact. 5. Morbid obesity with a body mass index (BMI) of 63. PROCEDURE: 1. Right shoulder arthroscopic subacromial bursectomy and rotator cuff debridement. 2. Right shoulder arthroscopic intra-articular biceps tenotomy and labral debridement. 3. Right shoulder open distal clavicle excision. SURGEON: Duke Haley MD PHOTO FINISHER: JAYJAY Boggs ANESTHESIA: General endotracheal tube anesthesia with right interscalene nerve block. COMPLICATIONS: None. ESTIMATED BLOOD LOSS: 50 mL. FINDINGS: The rotator cuff was intact. There was some fraying, some fibrosis and some bursitis in the subacromial space. In addition, intra-articularly the biceps tendon was clearly abnormal as it entered into the intertubercular groove. This was associated with upper boarder subscapularis tendinitis or tendinosis with partial intrasubstance tearing indicative of pathology in this region. The glenohumeral articular cartilage was intact. The AC joint did appear to have some degenerative changes at the distal end of the clavicle noted when we did the open distal clavicle excision. PROCEDURE: After antibiotics were given and a right interscalene nerve block and then a general endotracheal tube anesthetic was established, she was appropriately positioned on the beach chair. It was fairly difficult given her size and her body habitus, but eventually we were able to get her secured onto the beach chair table. The Bsmark shoulder sofia was utilized. Her right shoulder was carefully prepped and draped in the usual sterile fashion. After appropriate time out, I marked out the skin incisions and entered the shoulder through the previously placed posterior scar into the subacromial space. With some perseverance, we were able to establish a lateral working portal and eventually we were able to get reasonable visualization. Because of the size of her shoulder, I was unable to manipulate the arthroscope from the posterior portal because the cannula was fully seated into the into the subacromial space and thus very limited mobility was noted and we were therefore unable to get good visualization, thus I moved the visualization portal more laterally by using a spinal needle localization, switching stick technique, and the scope was placed into the better visualization portal for better visualization. I was able to identify the previous rotator cuff tear. Clearly it was intact. There was not retracted full thickness tear noted. There was some subacromial fraying and fibrosis of the repaired zone. That was lightly debrided with a 4.0 shaver through the lateral portal. Subperiosteal ablation of the tissue on the undersurface of the acromion was performed with the ablator wand. After I was satisfied and photographically documented that indeed the rotator cuff was intact, it was quite clear that it would be very difficult to do an arthroscopic subacromial decompression given the size of the soft tissue envelop around her shoulder and thus at this point I proceeded to go intra-articularly. I placed through the posterior portal the scope into the intra-articular space of the shoulder and was able to get good visualization. The anterior interval working portal was established anteriorly and clearly the biceps tendon was frayed and this was photographed and with partial tearing you could see that there were striations in the upper border of the subscapularis tendon indicative of a chronic tear in this area. This was likely possibly causing some of her popping and anterior/superior symptomatology, thus a biceps tenotomy was elected and performed with the ablator want and then the remaining labrum and frayed labral tissues around that area was debrided with the 4.0 shaver. We photographed before and afterward. At this point, I concluded the arthroscopic portion of the procedure. I then made a small saber incision on the superior surface of the shoulder joint. Bovie cautery was used to coagulate the crossing vessels. Weitlaner retractors were placed down deep into the thick and deep soft tissue envelop to the clavicle, and then I was able to identify eventually the AC joint and then split this longitudinally with the Bovie cautery subperiosteally exposing the distal end of the clavicle. A Rosales elevator was placed into the AC joint to elevate the clavicle up and posterior retractor was placed and once we had excellent visualization of the distal end of the clavicle, it was noted that we had clearly some damage to this area, which would be consistent with her having symptomatology in this area. The micro-saggital saw was then used to excise about 1 cm of the distal clavicle and a small rongeur was used to clean up the cut. I then copiously irrigated the wound and closed the deep periosteal tissues over the AC joint with #0 PDS suture, then the fascia between the trapezius and deltoid was then closed also over the AC joint with several interrupted #0 PDS sutures. We irrigated again between layers and closed the deep subdermal tissues with interrupted #2-0 PDS sutures. The skin was closed with vane as were the arthroscopy portals. Then a dry sterile bulky dressing was applied. She was placed into her sling and then awakened from general endotracheal tube anesthesia and then carefully moved from the beach chair back, to the stretcher and then back to the recovery room in stable condition. There were no intraoperative complications. Mr. Otis Stein was critical to the success of this very difficult operation by helping to position the patient, helping to manipulate the soft tissues to do the open distal clavicle, helped to manipulate the scope and the arthroscopic instruments as needed so I could perform the operation smoothly and efficiently.
== END 2017-05-02 11:00 | disposition home or self-care (01) ==
LOC: M SDC 10:04 → M MS5PR 18:55 → M SDC 05-02 11:00
PROVIDERS: ATTEND Orthopaedic Surgery
DX: S43.101A Unspecified dislocation of right acromioclavicular joint, initial encounter (principal); M75.21 Bicipital tendinitis, right shoulder; M75.81 Other shoulder lesions, right shoulder; M19.011 Primary osteoarthritis, right shoulder; R69 Illness, unspecified; Z68.44 Body mass index [BMI] 60.0-69.9, adult; I10 Essential (primary) hypertension; M06.9 Rheumatoid arthritis, unspecified; E78.00 Pure hypercholesterolemia, unspecified; I73.9 Peripheral vascular disease, unspecified; K21.9 Gastro-esophageal reflux disease without esophagitis; M54.2 Cervicalgia; R29.898 Other symptoms and signs involving the musculoskeletal system; J44.9 Chronic obstructive pulmonary disease, unspecified; G47.33 Obstructive sleep apnea (adult) (pediatric); R06.83 Snoring; F32.9 Major depressive disorder, single episode, unspecified; E78.5 Hyperlipidemia, unspecified; G47.00 Insomnia, unspecified; F17.210 Nicotine dependence, cigarettes, uncomplicated; Z88.0 Allergy status to penicillin; Z88.1 Allergy status to other antibiotic agents; Z88.2 Allergy status to sulfonamides; Z79.899 Other long term (current) drug therapy; Z79.82 Long term (current) use of aspirin; Z79.51 Long term (current) use of inhaled steroids; Z98.51 Tubal ligation status; Z95.828 Presence of other vascular implants and grafts; Z91.5 Personal history of self-harm; W18.00XA Striking against unspecified object with subsequent fall, initial encounter; Y93.89 Activity, other specified; Y92.410 Unspecified street and highway as the place of occurrence of the external cause; Y99.0 Civilian activity done for income or pay
CPT/HCPCS: 23120; 29823; 29828; 88300; 94640; J1100; J2250; J2370; J2405; J2710; J2795; J3010

== ENCOUNTER → 2017-06-15 | Outpatient (CLI) | payer OTHER, BC ==
[~2017-06-15] MED LIST changes: +CLOTPOW; -LIDOCAINE 1% MDV 20ML VIAL SQ PRN; -LR 1,000 ML IV ONE; -VANCOMYCIN HCL 1,000 MG, VIAL MATE ADAPTER 1 EACH in D5W 250 ML IV ONE; +VENTAER
--- NOTE | 2017-06-15 11:03 | REP ---
Right upper extremity duplex venous ultrasound: History: Swelling. Question DVT. Findings: The right internal jugular, axillary, brachial, basilic, and cephalic veins are anechoic and compressible in the left upper extremity. Color flow imaging is homogeneous. Spectral Doppler interrogation is unremarkable. There is no evidence of right upper extremity venous thrombosis. Impression: Negative right upper extremity duplex venous ultrasound. No evidence of venous thrombosis. Signed by Estuardo Lynne MD 06/15/2017 10:55 A
== END ==
LOC: M RAD 09:46
PROVIDERS: ATTEND Physician Assistant Surgical
DX: Z47.89 Encounter for other orthopedic aftercare (principal)

== ENCOUNTER → 2017-09-13 | Outpatient (REF) | payer BC | LOC: M SFHCCLAY 10:42 | DX: Z12.4 Encounter for screening for malignant neoplasm of cervix (principal) | CPT/HCPCS: G0123 ==

== ENCOUNTER → 2017-09-13 | Outpatient (CLI) | payer BC | LOC: M CLY 10:56 | DX: J44.9 Chronic obstructive pulmonary disease, unspecified (principal) ==

== ENCOUNTER → 2018-01-23 | Outpatient (CLI) | payer BC | LOC: M RAD 11:53 | DX: N92.6 Irregular menstruation, unspecified (principal) | CPT/HCPCS: 76856 ==

== ENCOUNTER → 2018-04-29 | Outpatient (REF) | payer BC ==
[2018-04-29 11:38] LABS: HEMATOCRIT 41.5 % (36.0-47.0); HEMOGLOBIN 13.9 g/dl (12.0-15.5); MEAN CORPUSCULAR HEMOGLOBIN 30.5 pg (27.0-33.0); MEAN CORPUSCULAR HGB CONC 33.5 g/dl (32.0-36.5); MEAN CORPUSCULAR VOLUME 91.2 fl (80.0-96.0); PLATELET COUNT, AUTOMATED 159 10^3/uL (150-450); RED BLOOD COUNT 4.55 10^6/uL (4.00-5.40); RED CELL DISTRIBUTION WIDTH 12.9 % (11.5-14.5); WHITE BLOOD COUNT 5.2 10^3/uL (4.0-10.0)
[2018-04-29 12:05] LABS: ESTIMATED AVERAGE GLUCOSE 108 MG/DL (60-110); HEMOGLOBIN A1c 5.4 %
[2018-04-29 12:21] LABS: ALBUMIN 3.7 GM/DL (3.2-5.2); ALBUMIN/GLOBULIN RATIO 1.28 (1.00-1.93); ALKALINE PHOSPHATASE 70 U/L (45-117); ALT/SGPT 37 U/L (12-78); ANION GAP 9 MEQ/L (8-16); AST/SGOT 27 U/L (7-37); BILIRUBIN,TOTAL 0.3 MG/DL (0.2-1.0); BLOOD UREA NITROGEN 8 MG/DL (7-18); CALCIUM LEVEL 8.8 MG/DL (8.5-10.1); CARBON DIOXIDE LEVEL 29 MEQ/L (21-32); CHLORIDE LEVEL 103 MEQ/L (98-107); CREATININE FOR GFR 0.67 MG/DL (0.55-1.30); FOLATE > 24.0 NG/ML (>5.4); GLOMERULAR FILTRATION RATE > 60.0 (>51); GLUCOSE, FASTING 82 MG/DL (70-100); MAGNESIUM LEVEL 1.8 MG/DL (1.8-2.4); POTASSIUM SERUM 4.2 MEQ/L (3.5-5.1); SODIUM LEVEL 141 MEQ/L (136-145); TOTAL PROTEIN 6.6 GM/DL (6.4-8.2); VITAMIN B12 LEVEL > 2000 PG/ML (247-911)
[2018-04-29 12:28] LABS: MALB URINE SIEMENS 38.8 MG/L; MAU/CREAT RATIO 15.2 MCG/MG (0.0-30.0)
== END ==
LOC: M SFHCCLAY 07:01
DX: E11.9 Type 2 diabetes mellitus without complications (principal); M79.7 Fibromyalgia; Z98.84 Bariatric surgery status
CPT/HCPCS: 82746

== ENCOUNTER → 2018-04-29 | Outpatient (REF) | payer BC ==
[2018-04-29 12:39] LABS: BASO % 0.5 % (0.0-1.0); EOS # 0.2 10^3/uL (0.0-0.50); EOS % 3.1 % (0.0-3.0); HEMATOCRIT 40.7 % (36.0-47.0); HEMOGLOBIN 13.9 g/dl (12.0-15.5); IMMATURE GRANULOCYTE % 0.2 % (0-3.0); LYMPH # 2.8 10^3/uL (1.5-4.5); LYMPH % 49.8 % (24.0-44.0); MEAN CORPUSCULAR HEMOGLOBIN 30.7 pg (27.0-33.0); MEAN CORPUSCULAR HGB CONC 34.2 g/dl (32.0-36.5); MEAN CORPUSCULAR VOLUME 89.8 fl (80.0-96.0); MONO # 0.4 10^3/uL (0.0-0.8); MONO % 6.3 % (0.0-5.0); NEUTROPHILS # 2.2 10^3/uL (1.8-7.7); NEUTROPHILS % 40.1 % (36.0-66.0); PLATELET COUNT, AUTOMATED 152 10^3/uL (150-450); RED BLOOD COUNT 4.53 10^6/uL (4.00-5.40); RED CELL DISTRIBUTION WIDTH 12.9 % (11.5-14.5); WHITE BLOOD COUNT 5.5 10^3/uL (4.0-10.0)
[2018-04-29 12:57] LABS: ALBUMIN 3.6 GM/DL (3.2-5.2); ALKALINE PHOSPHATASE 71 U/L (45-117); ALT/SGPT 37 U/L (12-78); ANION GAP 7 MEQ/L (8-16); AST/SGOT 27 U/L (7-37); BILIRUBIN,TOTAL 0.3 MG/DL (0.2-1.0); BLOOD UREA NITROGEN 9 MG/DL (7-18); CALCIUM LEVEL 8.7 MG/DL (8.5-10.1); CARBON DIOXIDE LEVEL 30 MEQ/L (21-32); CHLORIDE LEVEL 104 MEQ/L (98-107); CREATININE FOR GFR 0.69 MG/DL (0.55-1.30); FERRITIN 142 NG/ML (8-252); GLOMERULAR FILTRATION RATE > 60.0 (>51); GLUCOSE, FASTING 83 MG/DL (70-100); IRON (FE) 158 UG/DL (50-170); MAGNESIUM LEVEL 1.9 MG/DL (1.8-2.4); PERCENT SATURATION 72.8 % (13.2-45.0); PHOSPHORUS LEVEL 3.4 MG/DL (2.5-4.9); POTASSIUM SERUM 4.2 MEQ/L (3.5-5.1); SODIUM LEVEL 141 MEQ/L (136-145); TOTAL IRON BINDING CAPACITY 217 UG/DL (250-450); TOTAL PROTEIN 6.6 GM/DL (6.4-8.2)
[2018-04-29 13:05] LABS: TOTAL 25(OH) VITAMIN D 33.3 NG/ML (30.0-100.0)
[2018-04-29 13:19] LABS: ESTIMATED AVERAGE GLUCOSE 111 MG/DL (60-110); HEMOGLOBIN A1c 5.5 %
[2018-04-29 21:33] LABS: HEMATOCRIT 40.7 % (36.0-47.0)
[2018-04-30 11:06] LABS: RBC FOLATE 670.8 NG/ML (280-791)
== END ==
LOC: M LABDRAWC 11:33
DX: K91.2 Postsurgical malabsorption, not elsewhere classified (principal); Z98.84 Bariatric surgery status; E55.9 Vitamin D deficiency, unspecified
CPT/HCPCS: 83550

== ENCOUNTER 2018-10-30 07:12 | Emergency (ER) | payer BC ==
[~2018-10-30 07:12] MED LIST changes: -ACET160S5 PO; -BISO10TA PO; +BISO10TA13 PO; -CITA20TA4 PO; +CITA20TA6 PO; +FOLI1TAB11 PO; -FOLI1TAB4 PO; -LASI20TA PO; +LASI20TA3 PO; +METH2.5T48 PO; -METH2.5TA PO; +TGTSUS3 PO; -VITA1CAP40 PO; +VITA50005 PO
[2018-10-30] MEDS ORDERED: CYMB60CA3 PO (07:21)
[2018-10-30] MEDS ORDERED: VITA1CAP25 PO (07:21)
[2018-10-30] MEDS ORDERED: REXU1TAB4 PO (07:26)
[2018-10-30] MEDS ORDERED: HYDR-3363 PO (07:26)
[2018-10-30] MEDS ORDERED: COMPTAB PO (07:26)
[2018-10-30] MEDS ORDERED: CLON0.5T17 PO (07:26)
[2018-10-30] MEDS ORDERED: LOSA25TA14 PO (07:26)
[2018-10-30] MEDS ORDERED: INFL10VL IV (07:32)
[2018-10-30] MEDS ORDERED: NS 1,000 ML IV ONE (07:45)
[2018-10-30] MEDS ORDERED: CLINDAMYCIN 900 MG in APPROPRIATE DILUENT 1 EA IV ONE (07:45)
[2018-10-30 08:11] LABS: BASO % 0.3 % (0.0-1.0); EOS # 0.2 10^3/uL (0.0-0.50); HEMATOCRIT 44.2 % (36.0-47.0); HEMOGLOBIN 14.9 g/dl (12.0-15.5); LYMPH % 26.2 % (24.0-44.0); MEAN CORPUSCULAR HEMOGLOBIN 30.7 pg (27.0-33.0); MEAN CORPUSCULAR HGB CONC 33.7 g/dl (32.0-36.5); MEAN CORPUSCULAR VOLUME 90.9 fl (80.0-96.0); MONO # 0.6 10^3/uL (0.0-0.8); MONO % 8.1 % (0.0-5.0); NEUTROPHILS # 4.7 10^3/uL (1.8-7.7); NEUTROPHILS % 62.1 % (36.0-66.0); PLATELET COUNT, AUTOMATED 154 10^3/uL (150-450); RED BLOOD COUNT 4.86 10^6/uL (4.00-5.40); WHITE BLOOD COUNT 7.6 10^3/uL (4.0-10.0)
[2018-10-30 08:29] LABS: BLOOD UREA NITROGEN 7 MG/DL (7-18); C REACTIVE PROTEIN QUANTITATIV 4.71 MG/DL (0.00-0.30); CALCIUM LEVEL 8.5 MG/DL (8.5-10.1); CARBON DIOXIDE LEVEL 28 MEQ/L (21-32); CHLORIDE LEVEL 107 MEQ/L (98-107); CREATININE FOR GFR 0.57 MG/DL (0.55-1.30); GLOMERULAR FILTRATION RATE > 60.0 (>51); GLUCOSE, FASTING 97 MG/DL (70-100); POTASSIUM SERUM 4.2 MEQ/L (3.5-5.1); SODIUM LEVEL 141 MEQ/L (136-145)
[2018-10-30] MEDS ORDERED: MORPHINE 4 MG/ML 1ML VIAL/SYRINGE (J2270) IV ONE (09:15)
[2018-10-30] MEDS ORDERED: ISOVUE-370 76% 100ML VIAL (Q9967) As Ordered ONE (09:18)
[2018-10-30 09:59] LABS: ERYTHROCYTE SEDIMENTATION RATE 7 mm/hr (0-30)
--- NOTE | 2018-10-30 10:29 | REP ---
MAXILLOFACIAL CT WITH CONTRAST: HISTORY: Right facial swelling. CONTRAST: Isovue 370, 75 mL. Minimal mucosal thickening is present in the maxillary sinuses. The remaining sinuses are clear. Mucosal thickening involves the left ostiomeatal unit. The right ostiomeatal unit is patient. The middle and inferior nasal turbinates are partially paradoxical. There is evans bullosa of the middle nasal turbinates. There is minimal deviation of the nasal septum to the left. A spur is present arising from the left side of the nasal septum. The spur abuts the left inferior nasal turbinate. The cribriform plate, medial olsen of the orbits and optic canals are intact. The carotid canals form a segment of the posterolateral olsen of the sphenoid sinus. The sphenoid sinus septum inserts into the left internal carotid canal wall. There is soft tissue thickening along the buccal surface of the anterior right maxilla and right mandible. Stranding is present in the overlying subcutaneous tissue consistent with edema. The naso and hypopharynx are normal in appearance. The salivary and thyroid glands are normal in size and density. Small lymph nodes less than 1 cm in size are present in the internal jugular chains, posterior triangles, submandibular and submental areas. Periapical lucency involves several teeth in the maxilla and mandible. There are possible dental caries of several teeth in the maxilla. There is dehiscence of the buccal and lingual cortex in the region of the canine tooth of the right mandible. IMPRESSION: 1. Sinus mucosal thickening as described above. 2. There is minimal soft tissue thickening along the buccal surface of the right maxilla and anterior right mandible. Electronically Signed by Bryant Rios MD 10/30/2018 10:47 A
[2018-10-30] MEDS ORDERED: NORC1TAB7 PO (10:30)
[2018-10-30] MEDS ORDERED: CLEO300C2 PO (10:30)
[2018-10-30 11:08] VITALS: BP 158/88
== END 2018-10-30 11:05 | disposition home or self-care (01) ==
LOC: M ED 07:12
DX: K04.7 Periapical abscess without sinus (principal); Z87.891 Personal history of nicotine dependence; Z98.84 Bariatric surgery status; G40.909 Epilepsy, unspecified, not intractable, without status epilepticus; E78.00 Pure hypercholesterolemia, unspecified; I10 Essential (primary) hypertension; J44.9 Chronic obstructive pulmonary disease, unspecified; G47.30 Sleep apnea, unspecified; K21.9 Gastro-esophageal reflux disease without esophagitis; E11.9 Type 2 diabetes mellitus without complications; M06.9 Rheumatoid arthritis, unspecified; F41.9 Anxiety disorder, unspecified; F32.9 Major depressive disorder, single episode, unspecified; Z79.899 Other long term (current) drug therapy; Z88.0 Allergy status to penicillin; Z88.2 Allergy status to sulfonamides; Z88.1 Allergy status to other antibiotic agents
CPT/HCPCS: 70487; 80048; 85025; 85652; 86140; 96361; 96365; 96375; 99284; J2270; Q9967

== ENCOUNTER 2019-04-03 10:04 | Inpatient (IN) | payer BC ==
[~2019-04-03] VITALS: Ht 157.5 cm; Wt 104.5 kg
[~2019-04-03 10:04] MED LIST changes: +CLEO300C2 PO; +CLON0.5T17 PO; +COMPTAB PO; +CYMB60CA3 PO; +HYDR-3363 PO; +INFL10VL IV; +LOSA25TA14 PO; +NORC1TAB7 PO; -OMEP40CA2 PO; +OMEP40CA97 PO; +REXU1TAB4 PO; -VENTAER; +VENTAER INH; +VITA1CAP25 PO
[2019-04-03] MEDS ORDERED: SERT-138 PO (10:19)
[2019-04-03] MEDS ORDERED: ONDANSETRON 4MG/2ML VIAL (J2405) IV ONE (10:45)
[2019-04-03] MEDS ORDERED: NS 1,000 ML IV ONE (10:45)
[2019-04-03] MEDS ORDERED: MORPHINE 2 MG/ML 1ML VIAL (J2270) IV PRN (10:45)
[2019-04-03 10:53] LABS: BASO # 0.1 10^3/uL (0.0-0.2); BASO % 0.7 % (0.0-1.0); EOS # 0.2 10^3/uL (0.0-0.5); EOS % 2.6 % (0.0-3.0); HEMATOCRIT 40.3 % (36.0-47.0); HEMOGLOBIN 13.7 g/dl (12.0-15.5); LYMPH # 2.2 10^3/uL (1.5-5.0); LYMPH % 28.1 % (24.0-44.0); MEAN CORPUSCULAR HEMOGLOBIN 31.9 pg (27.0-33.0); MEAN CORPUSCULAR VOLUME 93.9 fl (80.0-96.0); MONO # 0.6 10^3/uL (0.0-0.8); MONO % 8.3 % (0.0-5.0); NEUTROPHILS # 4.5 10^3/uL (1.5-8.5); NEUTROPHILS % 59.1 % (36.0-66.0); PLATELET COUNT, AUTOMATED 198 10^3/uL (150-450); RED BLOOD COUNT 4.29 10^6/uL (4.00-5.40); WHITE BLOOD COUNT 7.7 10^3/uL (4.0-10.0)
[2019-04-03 11:22] LABS: ALBUMIN 3.2 GM/DL (3.2-5.2); ALT/SGPT 100 U/L (12-78); BILIRUBIN,DIRECT 0.9 MG/DL (0.0-0.2); BLOOD UREA NITROGEN 9 MG/DL (7-18); CALCIUM LEVEL 8.9 MG/DL (8.5-10.1); CARBON DIOXIDE LEVEL 32 MEQ/L (21-32); CHLORIDE LEVEL 105 MEQ/L (98-107); CREATININE FOR GFR 0.53 MG/DL (0.55-1.30); GLOMERULAR FILTRATION RATE > 60.0 (>51); GLUCOSE, FASTING 91 MG/DL (70-100); LIPASE 153 U/L (73-393); POTASSIUM SERUM 4.1 MEQ/L (3.5-5.1); SODIUM LEVEL 141 MEQ/L (136-145); TOTAL PROTEIN 6.4 GM/DL (6.4-8.2)
[2019-04-03] MEDS ORDERED: ISOVUE-370 76% 100ML VIAL (Q9967) As Ordered ONE (11:33)
--- NOTE | 2019-04-03 13:29 | REP ---
Abdominal right upper quadrant ultrasound for abdominal pain and distension: There is no cholelithiasis, gallbladder wall thickening or pericholecystic fluid. The common biliary duct is dilated measuring 12.1 mm in diameter. There is no intrahepatic biliary duct dilatation. The hepatic parenchyma is homogeneous. The liver is enlarged measuring up to 22 cm craniocaudad in the midclavicular line. The visualized areas of the pancreas are unremarkable. Right kidney measures 12.5 x 4.8 x 4.9 cm and is normal size. There is no right renal calculus, hydronephrosis, mass or cyst. There is no right upper quadrant ascites. Impression: Dilated common biliary duct. The intrahepatic biliary ducts do not appear dilated. No cholelithiasis, gallbladder otherwise unremarkable. No ascites. Hepatomegaly. Electronically Signed by Kalpesh Burns MD 04/03/2019 01:21 P
--- NOTE | 2019-04-03 13:41 | REP ---
CT abdomen pelvis with IV but without oral contrast: History: Pain radiating to the back. CT contrast dose: 100 mL of intravenous Isovue [address] findings: Preliminary digital traffic or system dispatcher radiograph demonstrates an unremarkable bowel gas pattern. There is a 6 mm noncalcified nodule in the right lower lobe of the lung. The patient is status post gastric bypass procedure. There is mild fatty infiltration of the liver. The liver is prominent in size. Craniocaudal span in the midclavicular line is 18.4 cm. No focal hepatic lesion is seen. The gallbladder is distended measuring up to 12 cm in greatest dimension. Its wall is not thickened and no stone is seen by CT. No pancreatic abnormality is observed. The common bile duct is dilated measuring 12 mm in AP dimension in the pancreatic head. The intrahepatic bile ducts do not appear to be dilated. The spleen is unremarkable. No adrenal lesion is observed. A normal appendix is seen in the right lower quadrant. No ovarian abnormality is observed. The uterus is enlarged in a multinodular fashion consistent with fibroids. It measures 11 cm x 7.5 cm x 9.3 cm. There is extensive atherosclerotic calcification. There is evidence of aortoiliac occlusive disease with bilateral common iliac artery stents. The right iliac artery and the right stent appear to be occluded. The left stent appears to show contrast enhancement. There are retroperitoneal collateral vessels along the course of the gonadal veins bilaterally. Hypogastric arterial collaterals are seen as well. The right distal common iliac artery is reconstituted. The internal iliac arteries are bilaterally patent. Urinary bladder is unremarkable. Impression: 1. Fatty infiltration of the liver and hepatomegaly. 2. Distended gallbladder. Dilated common bile duct, 12 mm. 3. Aortobiiliac occlusive atherosclerotic disease with bilateral common iliac artery stents. The right stent is occluded but the common iliac artery is reconstituted via collaterals. 4. Enlarged fibroid uterus. 5. Normal appendix. Otherwise negative. Electronically Signed by Estuardo Lynne MD 04/03/2019 02:06 P
--- NOTE | 2019-04-03 13:46 | REP ---
REASON: Chest pain radiating to the back. PRIORS: None. CONTRAST: 100 mL Isovue 370. The thoracic aorta opacifies normally. There is no evidence of aneurysmal dilatation or ectasia. There is no evidence of aortic dissection. There is less than optimal opacification of the pulmonary arterial vasculature. No definite focal filling defects are identified that would be considered consistent with acute pulmonary emboli. There are no pleural or pericardial effusions. There are multiple nonenlarged mediastinal and right hilar lymph nodes. Evaluation of the lung adamson shows a 6 mm sized noncalcified nodule in the right lower lobe. No other abnormal nodules, masses, or opacities are present. Bone window technique throughout the exam shows the osseous structures to be within normal limits for the patient's age. IMPRESSION: 1. No evidence of an intrathoracic vascular abnormality as described above. 2. 6 mm size nodule in the right lower lobe. According to the revised Fleischner's Society criteria this represents a category 4A lesion for which a [address] scan of the chest is recommended. Electronically Signed by Zaire Sterling DO 04/03/2019 02:34 P
[2019-04-03] MEDS ORDERED: VITACHTA PO (15:48)
[2019-04-03] MEDS ORDERED: ACET500T15 PO (15:48)
[2019-04-03] MEDS ORDERED: D 202000 PO (15:48)
[2019-04-03] MEDS ORDERED: CYAN100050 PO (15:48)
[2019-04-03] MEDS ORDERED: AMMO12LO TOP (15:48)
[2019-04-03] MEDS ORDERED: CLON0.5T8 PO (15:48)
[2019-04-03] MEDS ORDERED: clonazePAM 0.5 MG TAB PO PRN (16:30)
[2019-04-03] MEDS ORDERED: LACTIC ACID 12% LOTION 225 GM BTL TOP PRN (16:30)
[2019-04-03] MEDS ORDERED: hydrOXYzine 25 MG TAB PO PRN (16:30)
[2019-04-03] MEDS ORDERED: ALBUTEROL 90 MCG/ACT 8GM HFA INHALER INH PRN (16:30)
[2019-04-03 17:20] LABS: AMYLASE 37 U/L (25-115); LIPASE 121 U/L (73-393)
[2019-04-03 18:40] VITALS: BP 118/58
[2019-04-03 19:00] VITALS: BP 108/53
--- NOTE | 2019-04-03 19:05 | ECGEPIP ---
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
[2019-04-03] MEDS ORDERED: LORazepam 0.5 MG TAB PO ONE (19:45)
[2019-04-03] MEDS: FOLIC ACID 1 MG TAB PO SCH (20:53)
--- NOTE | 2019-04-03 20:54 | REPVR ---
PROCEDURE INFORMATION: Exam: MR Abdomen Without Contrast; Liver Exam date and time: 04/03/2019 8:43 PM Clinical history: 48 years. No calculi&; Epigastric TECHNIQUE: Imaging protocol: MRCP Abdomen without contrast. Exam focused on the liver and bile ducts. 3D rendering: MIP reconstructed images were created and reviewed. COMPARISON: GALLBLADDER US 04/03/2019 12:55 PM FINDINGS: Liver: Unremarkable liver. No masses. Gallbladder and bile ducts: Slight thickening of the gallbladder wall. No calculi demonstrated. No dilatation of the intra-hepatic biliary tree. Common bile duct dilated to 9.9 mm in the mid to distal segment. No obstructing mass or calculus demonstrated. Pancreas: 2-3 mm cysts in the pancreatic tail likely represents a small side branch and pancreatic mucinous neoplasm (IPMN). Otherwise normal. Spleen: Normal. Kidneys and ureters: Normal kidneys. Visualized ureters are unremarkable. Intraperitoneal space: IMPRESSION: 1. Slight thickening of the gallbladder wall. No calculi demonstrated. 2. No dilatation of the intra-hepatic biliary tree. Common bile duct dilated to 9.9 mm in the mid to distal segment. No obstructing mass or calculus demonstrated. 3. 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 Followup could be obtained in 12 months. Electronically signed by: Vern Barrera On 04/03/2019 20:54:10 PM
[2019-04-03] MEDS ORDERED: MORPHINE 4 MG/ML 1ML VIAL/SYRINGE (J2270) IV PRN (21:00)
--- NOTE | 2019-04-03 21:03 | HPEPDOC ---
General Date of Admission Apr 03, 2019 at 15:33 Date of Service: Apr 03, 2019 Attending Physician: RAJANI BARAHONA MD Chief Complaint The patient is a 48-year-old female admitted with a reason for visit of Abdominal Pain. Source: Patient Exam Limitations: No limitations Timing/Duration: Week(s) Severity: Moderate Associated Symptoms: Fever, Chills, Nausea, Other (abdominal pain) History of Present Illness 48 yo woman with a history of RA on infliximab, history of Carina-en-Y surgery who presented with progressive episodic RUQ and epigastric abdominal pain. She reports that the pain was initially post prandial but has increasingly gotten worse and more constant. She presented to [facility] ~1 week ago and had a CT A/P that she was told was within normal limits. A few days later she saw her PCP and now presents with persisting abdominal pain with associated nausea, chills, poor PO. In the ED, she was hemodynamically stable and afebrile, breathing comfortably on room air, with moderate distress from her abdominal pain. She reports a long history of dysuria with negative workups before, and reports having it now with some back pain but mostly epigastric radiating to the back. While she was in the ED, the ED physician spoke with GI and surgery given then due to her surgery history will not be able to get an ERCP and will order for an MRCP and depending on the findings may require a surgical consult. Initial work up was notable for WBC 7.7, normal H/H, lipase 153->121, amylase 37, CT A/P showing dilated CBD to 12mm that was confirmed on abdominal ultrasound, also noting some hepatomegaly and fatty infiltration, while a CTA did not show a dissection. Home Medications Scheduled Bisoprolol Fumarate (Bisoprolol Fumarate) 10 Mg Tab, 5 MG PO DAILY, (Reported) Cholecalciferol (Vitamin D3) (Vitamin D3) 2,000 Unit Tablet, 2,000 UNIT PO DAILY, (Reported) Clopidogrel Bisulfate (Plavix) 75 Mg Tab, 75 MG PO DAILY, (Reported) Cyanocobalamin (Vitamin B-12) (Vitamin B-12) 1,000 Mcg Tablet, 1,000 MCG PO JUAN LY, (Reported) Folic Acid (Folic Acid) 1 Mg Tab, 1 MG PO BID, (Reported) Infliximab Injection (Remicade) 100 Mg Vial, 400 MG IV Q4WKS, (Reported) DUE TO RECEIVE 04/08/19 Losartan Potassium (Losartan Potassium) 25 Mg Tablet, 25 MG PO DAILY, (Reported) Methotrexate Sodium (Methotrexate) 2.5 Mg Tab, 20 MG PO QWEEK, (Reported) SUNDAYS Multivitamins (Child Chew Vitamin) 1 Each Tab.chew, 2 TAB PO DAILY, (Reported) Omeprazole (Omeprazole) 40 Mg Cap, 40 MG PO DAILY, (Reported) Phenytoin Sodium Extended (Dilantin) 100 Mg Cap, 600 MG PO DAILY, (Reported) Sertraline HCl (Sertraline HCl) 100 Mg Tablet, 200 MG PO DAILY, (Reported) Tiotropium Lindsey (Spiriva) 18 Mcg Cap, 18 MCG INH DAILY, (Reported) Scheduled PRN Acetaminophen (Acetaminophen) 500 Mg Tablet, 1,000 MG PO TID PRN for PAIN, (Reported) PATIENT STATES SHE TAKES 2 TO 4 TABLETS EVERY 6 HOURS IF SHE NEEDS IT. Albuterol Sulfate (Ventolin Hfa) 108 Mcg/Act Aer, 2 PUFFS INH QID PRN for SHORTNESS OF BREATH, (Reported) Ammonium Lactate (Ammonium Lactate) 12% Lotion, 1 DOSE TOP BID PRN for DRY SKIN, (Reported) APPLY TO ARMS AND CHEST Clonazepam (Clonazepam) 0.5 Mg Tablet, 0.5 MG PO 3XW PRN for ANXIETY, (Reported) Hydroxyzine HCl (Hydroxyzine HCl) 25 Mg Tablet, 25 MG PO TID PRN for ANXIETY, (Reported) Allergies Coded Allergies: Penicillins (Verified Allergy, Unknown, 10/30/18) Sulfa (Sulfonamide Antibiotics) (Verified Allergy, Unknown, 10/30/18) azithromycin (Verified Allergy, Unknown, 10/30/18) Past Medical History Medical History Brain tumor s/p surgery in 1986 Epilepsy GERD Gastric bypass Morbid obesity Rheumatoid arthritis Osteoarthritis Surgical History Brain tumor resection - 1986 Shoulder surgery - 2017 Carpal tunnel surgery Tubal ligation Family History Significant Family History: No pertinent family hx Social History * Smoker: Denies Alcohol: Denies Drugs: denies Recent Travel/Sick Contacts: Denies: Recent travel, Recent sick contacts Psychosocial History: No pertinent psych hx A-FIB/CHADSVASC A-FIB History Current/History of A-Fib/PAF?: No Current PO Anticoag Therapy: No Age/Risk Factor Scoring CHADSVASC: CHADSVASC Response (Comments) Value Age Risk Factor Age < 65 years old 0 Gender Risk Factor Female 1 Hx of CHF No 0 Hx of HTN No 0 Hx of Stroke/TIA/or VTE No 0 Hx of Diabetes No 0 Hx of Vascular Disease No 0 Total 1 Treatment Treatment ordered: NONE Reason Anticoagulant not given: Not indicated/[id number] Review of Systems Constitutional: Reports: Chills, Malaise; Denies: Fever, Weight Loss, Lethargy Eyes: Denies: Pain, Vision change ENT: Denies: Head Aches, Ear Pain, Dysphagia Skin: Denies: Rash, Lesions, Breakdown Pulmonary: Denies: Dyspnea, Cough Cardiovascular: Denies: Chest Pain, Palpitations, Orthopnea, Paroxysmal Noc. Dyspnea, Lt Headedness Gastrointestinal: Reports: Nausea, Abdominal Pain; Denies: Vomiting, Diarrhea, Constipation, Melena, Hematochezia Genitourinary: Reports: Dysuria; Denies: Frequency, Incontinence, Hematuria, Retention Hematologic: Denies: Bruising, Bleeding Excessively Endocrine: Denies: Polydipsia, Polyphagia, Polyuria, Heat Intolerance, Cold Intolerance, Other Endocrine Sx Musculoskeletal: Reports: Back Pain; Denies: Neck Pain, Joint Pain, Muscle Pain, Spasms Neurological: Denies: Weakness, Numbness, Change in speech, Confusion, Seizures Psych: Reports: Mood Normal; Denies: Depression, Memory Issues Physical Examination General Exam: Positive: Alert, No Acute Distress Eye Exam: Positive: PERRLA, Conjunctiva & lids normal, EOMI; Negative: Sclera icteric ENT Exam: Positive: Atraumatic, Mucous membr. moist/pink, Pharynx Normal Neck Exam: Positive: Supple; Negative: JVD, thyromegaly Chest Exam: Positive: Clear to auscultation, Normal air movement Heart Exam: Positive: Rate Normal, Regular Rhythm, Normal S1, Normal S2; Negative: Murmurs, Rubs Abdomen Exam: Positive: Normal bowel sounds, Soft, Tenderness (diffuse tendern ess. ++Godoy's); Negative: Mass Extremity Exam: Positive: Normal pulses; Negative: Clubbing, Cyanosis, Edema Skin Exam: Positive: Nl turgor and temperature; Negative: Breakdown, Lesion Neuro Exam: Positive: Normal Gait, Normal Speech, Cranial Nerves 3-12 NL, Reflexes 2+ Psych Exam: Positive: Mental status NL, Mood NL, Oriented x 3 Vital Signs Vital Signs Date Time Temp Pulse Resp B/P (MAP) Pulse Ox O2 Delivery O2 Flow Rate FiO2 04/03/19 19:00 98.2 70 18 108/53 (71) 95 04/03/19 17:45 Room Air Laboratory Data Labs 24H Laboratory Tests 2 04/03/19 10:25: Immature Granulocyte % (Auto) 1.2, White Blood Count 7.7, Red Blood Count 4.29, Hemoglobin 13.7, Hematocrit 40.3, Mean Corpuscular Volume 93.9, Mean Corpuscular Hemoglobin 31.9, Mean Corpuscular Hemoglobin Concent 34.0, Red Cell Distribution Width 14.1, Platelet Count 198, Neutrophils (%) (Auto) 59.1, Lymphocytes (%) (Auto) 28.1, Monocytes (%) (Auto) 8.3H, Eosinophils (%) (Auto) 2.6, Basophils (%) (Auto) 0.7, Neutrophils # (Auto) 4.5, Lymphocytes # (Auto) 2.2, Monocytes # (Auto) 0.6, Eosinophils # (Auto) 0.2, Basophils # (Auto) 0.1, Nucleated Red Blood Cells % (auto) 0.0, Anion Gap 4L, Glomerular Filtration Rate > 60.0, Lac tic Acid Level 2.1*H, Calcium Level 8.9, Aspartate Amino Transf (AST/SGOT) 143H, Alanine Aminotransferase (ALT/SGPT) 100H, Alkaline Phosphatase 122H, Total Bilirubin 1.0, Direct Bilirubin 0.9H, Total Protein 6.4, Albumin 3.2, Albumin/Globulin Ratio 1.00, Lipase 153 04/03/19 15:08: Lactic Acid Followup at 4 Hours 1.2 04/03/19 16:41: Lipase 121, Amylase Level 37 CBC/BMP Laboratory Tests 04/03/19 10:25 Red Blood Count 4.29, Mean Corpuscular Volume 93.9, Mean Corpuscular Hemoglobin 31.9, Mean Corpuscular Hemoglobin Concent 34.0, Red Cell Distribution Width 14.1, Neutrophils (%) (Auto) 59.1, Lymphocytes (%) (Auto) 28.1, Monocytes (%) (Auto) 8.3 H, Eosinophils (%) (Auto) 2.6, Basophils (%) (Auto) 0.7, Neutrophils # (Auto) 4.5, Lymphocytes # (Auto) 2.2, Monocytes # (Auto) 0.6, Eosinophils # (Auto) 0.2, Basophils # (Auto) 0.1 Assessment/Plan 48 yo woman s/p gastric bypass who presents with abdominal pain that started as postprandial pain but now more constant and found to have CBD dilatation without an inflammed gall bladder or stone reservoir who is pending MRCP for planning of intervention if indicated. Abdominal pain: Likely biliary colic over the last 1-2 weeks and now with likely choledocholithiasis without any signs of cholangitis. -MRCP -GI consult -NPO except for meds -morphine 2Q2H PRN IV -IV fluids NS @ 75cc/hr Chronic home meds: -continue home losartan -continue home omeprazole -continue home dilantin -continue home zoloft -continue home spiriva -continue home Vit D3 2000U -continue home klonopin and atarax for anxiety -continue home plavix DVT prophylaxis: lovenox Diet: NPO Plan / VTE VTE Prophylaxis Ordered?: Yes RAJANI BARAHONA MD Apr 03, 2019 21:03
[2019-04-03] MEDS: NS 1,000 ML IV SCH (21:43)
[2019-04-03 23:59] VITALS: BP 118/62
[2019-04-04 04:00] VITALS: BP 152/74
[2019-04-04 05:39] LABS: HEMATOCRIT 35.8 % (36.0-47.0); HEMOGLOBIN 12.3 g/dl (12.0-15.5); MEAN CORPUSCULAR HGB CONC 34.4 g/dl (32.0-36.5); MEAN CORPUSCULAR VOLUME 93.2 fl (80.0-96.0); PLATELET COUNT, AUTOMATED 207 10^3/uL (150-450); RED BLOOD COUNT 3.84 10^6/uL (4.00-5.40); WHITE BLOOD COUNT 5.2 10^3/uL (4.0-10.0)
[2019-04-04 06:09] LABS: ALBUMIN 2.8 GM/DL (3.2-5.2); ALT/SGPT 193 U/L (12-78); BILIRUBIN,TOTAL 2.2 MG/DL (0.2-1.0); BLOOD UREA NITROGEN 7 MG/DL (7-18); CALCIUM LEVEL 8.8 MG/DL (8.5-10.1); CARBON DIOXIDE LEVEL 28 MEQ/L (21-32); CHLORIDE LEVEL 108 MEQ/L (98-107); CREATININE FOR GFR 0.46 MG/DL (0.55-1.30); GLOMERULAR FILTRATION RATE > 60.0 (>51); GLUCOSE, FASTING 86 MG/DL (70-100); POTASSIUM SERUM 3.5 MEQ/L (3.5-5.1); SODIUM LEVEL 143 MEQ/L (136-145); TOTAL PROTEIN 6.5 GM/DL (6.4-8.2)
[2019-04-04] MEDS: TIOTROPIUM INHALER/CAPSULE (SPIRIVA) INH SCH (07:26)
[2019-04-04] MEDS: MULTIVITAMINS CHILDREN'S CHEWABLE TABLET PO SCH (08:14)
[2019-04-04] MEDS: PHENYTOIN ER 100 MG CAP PO SCH (08:14)
[2019-04-04] MEDS: CYANOCOBALAMIN 500 MCG TAB PO SCH (08:14)
[2019-04-04] MEDS: FOLIC ACID 1 MG TAB PO SCH ×2 (08:16→21:50)
[2019-04-04] MEDS: OMEPRAZOLE 20 MG CAP PO SCH (08:16)
[2019-04-04] MEDS: LOSARTAN 25 MG TAB PO SCH (08:17)
[2019-04-04] MEDS: SERTRALINE 100 MG TAB PO SCH (08:17)
[2019-04-04] MEDS: VITAMIN D 1,000 INTERNATIONAL UNITS TABLET PO SCH (08:17)
[2019-04-04] MEDS: BISOPROLOL FUMARATE 5 MG TAB PO SCH (08:18)
[2019-04-04] MEDS: CLOPIDOGREL 75 MG TAB PO SCH (08:18)
[2019-04-04] MEDS: ENOXAPARIN 40 MG/0.4 ML SYRINGE (J1650) SC SCH (08:19)
[2019-04-04 09:39] VITALS: BP 167/82
[2019-04-04] MEDS: NS 1,000 ML IV SCH ×2 (10:35→23:55)
--- NOTE | 2019-04-04 11:53 | IPNPDOC ---
Subjective Date Seen The patient was seen on 04/04/19. Subjective Chief Complaint/HPI Pt this morning without new concerns. She states that she had some nausea after taking her morning meds. This has subsided now. She has not see GI. Today painin abd only when touched. General: Reports: Fatigue Constitutional: Denies: Chills, Fever ENT: Denies: Head Aches Pulmonary: Denies: Dyspnea, Cough Cardiovascular: Denies: Chest Pain, Palpitations Gastrointestinal: Reports: Nausea, Abdominal Pain; Denies: Vomiting Neurological: Denies: Weakness Psych: Reports: Mood Normal Objective Physical Examination General Exam: Positive: Alert, No Acute Distress ENT Exam: Positive: Mucous membr. moist/pink Neck Exam: Positive: Supple; Negative: JVD, thyromegaly Chest Exam: Positive: Clear to auscultation, Normal air movement Heart Exam: Positive: Rate Normal, Regular Rhythm, Normal S1, Normal S2; Negative: Murmurs, Rubs Abdomen Exam: Positive: Normal bowel sounds, Soft, Tenderness (diffuse tendern ess. ++Godoy's); Negative: Mass Extremity Exam: Positive: Normal pulses; Negative: Clubbing, Cyanosis, Edema Skin Exam: Positive: Nl turgor and temperature; Negative: Breakdown, Lesion Neuro Exam: Positive: Normal Gait, Normal Speech, Cranial Nerves 3-12 NL, Reflexes 2+ Psych Exam: Positive: Mental status NL, Mood NL, Oriented x 3 Assessment /Plan Problems (1) Abdominal pain Status: Acute Response to Treatment: Stable Discussed With: Patient Problem Specific Plan: Monitor Clinically, Repeat Labs Problem Text: Pt this morning with improvement in her pain symptoms. She has a mucinous mass in the pancreatic tail noted on MRCP, GI consult placed yesterday to Dr Garcia, I have sent him a message this morning to verify that he plans to see the pt today. (2) Mass of pancreas Problem Text: see above. (3) Morbid obesity Status: Chronic Response to Treatment: Stable Problem Specific Plan: Monitor Clinically (4) DM2 (diabetes mellitus, type 2) Status: Chronic Response to Treatment: Stable (5) PVD (peripheral vascular disease) Status: Chronic Response to Treatment: Stable Problem Specific Plan: Monitor Clinically Problem Text: Cont home meds. Plan/VTE VTE Prophylaxis Ordered?: Yes VS, I&O, 24H, Fishbone Vital Signs/I&O Vital Signs Date Time Temp Pulse Resp B/P (MAP) Pulse Ox O2 Delivery O2 Flow Rate FiO2 04/04/19 09:39 97.1 54 20 167/82 (110) 95 04/03/19 17:45 Room Air I&O- Last 24 Hours up to 6 AM 04/04/19 06:00 Intake Total 890 ml Output Total 0 ml Balance 890 ml Laboratory Data 24H LABS Laboratory Tests 2 04/03/19 15:08: Lactic Acid Followup at 4 Hours 1.2 04/03/19 16:41: Amylase Level 37, Lipase 121 04/04/19 05:03: Nucleated Red Blood Cells % (auto) 0.0, Anion Gap 7L, Glomerular Filtration Rate > 60.0, Blood Urea Nitrogen 7, Creatinine 0.46L, Sodium Level 143, Potassium Level 3.5, Chloride Level 108H, Carbon Dioxide Level 28, Calcium Level 8.8, Aspartate Amino Transf (AST/SGOT) 192H, Alanine Aminotransferase (ALT/SGPT) 193H, Alkaline Phosphatase 129H, Total Bilirubin 2.2#H, Total Protein 6.5, Albumin 2.8L, Albumin/Globulin Ratio 0.76L CBC/BMP Laboratory Tests 04/04/19 05:03 Red Blood Count 3.84 L, Mean Corpuscular Volume 93.2, Mean Corpuscular Hemoglobin 32.0, Mean Corpuscular Hemoglobin Concent 34.4, Red Cell Distribution Width 14.2, Calcium Level 8.8, Aspartate Amino Transf (AST/SGOT) 192 H, Alanine Aminotransferase (ALT/SGPT) 193 H, Alkaline Phosphatase 129 H, Total Bilirubin 2.2 #H, Total Protein 6.5, Albumin 2.8 L HAYDEE ANDRES PA-C Apr 04, 2019 11:53
[2019-04-04 12:00] VITALS: BP 134/67
[2019-04-04 13:15] LABS: IRON (FE) 148 UG/DL (50-170); PERCENT SATURATION 63.5 % (13.2-45.0); TOTAL IRON BINDING CAPACITY 233 UG/DL (250-450)
[2019-04-04 13:37] LABS: HEPATITIS B SURFACE ANTIGEN NEGATIVE (NEGATIVE)
[2019-04-04 13:55] LABS: CA19-9 TUMOR MARKER,CARBOHYDRA 50.3 U/ML (<35.0)
[2019-04-04 14:05] LABS: HEPATITIS B CORE ANTIBODY IGM NEGATIVE (NEGATIVE); HEPATITIS C VIRUS ABY INDEX 0.1 INDEX (<0.8)
[2019-04-04 14:07] LABS: HEPATITIS A ANTIBODY IGM NEGATIVE (NEGATIVE)
--- NOTE | 2019-04-04 18:38 | REP ---
HIDA SCAN: Following the intravenous administration of 6.6 millicuries of technetium 99M Mebrofenin, multiple images of the right upper quadrant are performed for 1 hour. There is no defect in the liver, There is visualization of the gallbladder at 25 minutes postinjection and biliary to bowel transit is seen at approximately the same time. There is no scintigraphic evidence of cholecystitis. IMPRESSION: No scintigraphic evidence of cholecystitis. Electronically Signed by Kalpesh Billy MD 04/07/2019 05:01 P
[2019-04-04 20:00] VITALS: BP 144/68
[2019-04-04 23:59] VITALS: BP 156/83
[2019-04-05] MEDS: NS 1,000 ML IV SCH (03:30)
[2019-04-05 04:00] VITALS: BP 154/65
[2019-04-05 05:55] LABS: HEMOGLOBIN 12.1 g/dl (12.0-15.5); MEAN CORPUSCULAR HEMOGLOBIN 31.3 pg (27.0-33.0); MEAN CORPUSCULAR HGB CONC 33.6 g/dl (32.0-36.5); MEAN CORPUSCULAR VOLUME 93.3 fl (80.0-96.0); PLATELET COUNT, AUTOMATED 213 10^3/uL (150-450); RED BLOOD COUNT 3.86 10^6/uL (4.00-5.40); WHITE BLOOD COUNT 4.8 10^3/uL (4.0-10.0)
[2019-04-05 06:32] LABS: ALBUMIN 2.9 GM/DL (3.2-5.2); ALT/SGPT 141 U/L (12-78); BILIRUBIN,TOTAL 0.9 MG/DL (0.2-1.0); BLOOD UREA NITROGEN 7 MG/DL (7-18); CALCIUM LEVEL 8.4 MG/DL (8.5-10.1); CARBON DIOXIDE LEVEL 28 MEQ/L (21-32); CHLORIDE LEVEL 108 MEQ/L (98-107); GLOMERULAR FILTRATION RATE > 60.0 (>51); GLUCOSE, FASTING 75 MG/DL (70-100); POTASSIUM SERUM 3.5 MEQ/L (3.5-5.1); SODIUM LEVEL 143 MEQ/L (136-145); TOTAL PROTEIN 6.7 GM/DL (6.4-8.2)
[2019-04-05] MEDS ORDERED: LIDOCAINE 2% INJ 100 MG/5 ML SDV (FOR ANES.) As Ordered ONE (07:11)
[2019-04-05] MEDS ORDERED: PROPOFOL 200 MG/20 ML VIAL As Ordered ONE (07:11)
[2019-04-05] MEDS: TIOTROPIUM INHALER/CAPSULE (SPIRIVA) INH SCH (07:45)
[2019-04-05 08:00] VITALS: BP 136/75
--- NOTE | 2019-04-05 08:05 | CR ---
DATE OF CONSULTATION: 04/04/2019 STATUS OF PATIENT: Inpatient. REQUESTING PHYSICIAN: Hospitalist service REASON FOR CONSULTATION: Abdominal pain, hematemesis, liver enzyme abnormalities, pancreatic cyst on MRI. HISTORY OF PRESENT ILLNESS: This is a 48-year-old female with an extensive past medical history including rheumatoid arthritis - on Remicade and on methotrexate for the past 2 years. She has extensive peripheral vasculopathy, fatty liver, possibly early cirrhosis. She is status post Carina-en-Y gastric bypass. The patient was in her usual state of health until approximately 1-1/2 weeks ago when she started having dyspeptic symptoms nausea, vomiting and epigastric pain. She was seen at one of the outside hospitals emergency room where a CT scan of the abdomen and pelvis was performed and was reportedly normal or without any acute changes. She now presents to [facility] with progressive and worsening nausea and vomiting. She states she had shaking chills. Her abdominal pain has worsened and after several episodes of retching and vomiting, she had a small amount of blood streaked vomitus. During her workup at this time, several abnormalities in her lab work and radiological findings were noted. These include a mild elevation of total bilirubin, predominately direct, and mild transaminasemia, which is new compared to her previous routine blood work. In addition, her CT scan showed a dilated common bile duct with no intrahepatic ductal dilatation, a fatty liver and peripheral vasculopathy. She had an ultrasound of the right upper quadrant performed, which pretty much showed the same including the mildly dilated common bile duct at 12 mm without intrahepatic ductal dilatation. The pancreas was unable to be evaluated with this examination. She subsequently underwent an magnetic resonance cholangiopancreatography (MRCP), which showed again a somewhat prominent common bile duct without obstruction, stones or other obvious abnormalities. Her gallbladder was essentially normal in appearance. All the studies concur on the lack of gallstones. 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 Since yesterday, the patient's condition has relatively stabilized. She certainly does not have any fevers or chills. She has no further nausea or vomiting. Her abdominal pain is much better, although she still complains of significant pain when touching her abdomen. PAST MEDICAL HISTORY: 1. Brain surgery in 1986. 2. Morbid obesity. 3. Rheumatoid arthritis. 4. Osteoarthritis. 5. Gastroesophageal reflux disease. 6. Seizure disorder. PAST SURGICAL HISTORY 1. Carina-en-Y gastric bypass, Dr. Humphrey in [place]. 2. Esophagogastroduodenoscopy (EGD) and colonoscopy, Dr. Tesfaye Garza in [place]. 3. Carpal tunnel surgery. 4. section. 5. Tubal ligation. 6. Shoulder surgery. SOCIAL HISTORY: Negative for tobacco. Negative for alcohol. Negative for illicit drugs. MEDICATIONS AT HOME: - methotrexate 20 mg by mouth every week times 2-1/2 years - Remicade infusion, recently changed from every 8 weeks to every 4 weeks - Plavix - B12 1000 mcg daily - folic acid - losartan - omeprazole. - Dilantin 600 mg by mouth daily - sertraline 100 mg twice a day - bisoprolol - as needed use of acetaminophen - (I note that these medications are unchanged for extended period of time. The only recent change within the past 2 months was sertraline has been added. However, this was at least 2-3 months ago.) ALLERGIES: Allergies are to PENICILLIN, SULFA, and AZITHROMYCIN. FAMILY HISTORY: Negative for colorectal carcinoma, inflammatory bowel disease, or chronic liver disease. REVIEW OF SYSTEMS: General: Positive for night sweats and shaking chills over the past 2 weeks; this has resolved. Pulmonary: Negative for hemoptysis, pleuritic-type chest pain. Cardiac: Negative for orthopnea, paroxysmal nocturnal dyspnea (PND). Gastrointestinal (GI): As per history of the present illness. Genitourinary (): Negative for hematuria, dysuria. Hematologic: Negative for excessive bruising or bleeding. Musculoskeletal: Positive for chronic back pain and shoulder pain. Neurological: Negative for weakness, numbness or recent seizures. Vital Signs: Temperature 97.0, pulse 56, respiratory rate 18, blood pressure is 134/67, pulse oximetry 99% room air. General: This is a morbidly obese female, comfortably in bed. No acute distress, nontoxic in appearance. Head, eyes, ears, nose and throat: Is grossly without abnormality. There is no oral thrush. Neck is negative for lymphadenopathy, jugular venous distention (JVD). Chest is coarse, distant breath sounds but no rhonchi or crackles. Heart is regular rate and rhythm, S1, S2. No murmurs or gallops. Abdomen is soft, positive bowel sounds. Moderate tenderness on deep palpation in the epigastrium and right upper quadrant without any rebound tenderness or other peritoneal signs. I do not appreciate any masses or any fluid in her abdomen. Extremities: Negative for edema. Rectal: Examination is deferred as per patient. Neurologic Examination: Moves all extremities equally and bilaterally. Normal speech pattern. No asterixis. IMAGING STUDIES: CT abdomen and pelvis with IV and oral contrast dated 04/03/2019. Impression: 1. Fatty infiltration of the liver and hepatomegaly. 2. Distended gallbladder, dilated common bile duct without intrahepatic ductal dilatation. 3. Aortoiliac occlusive atherosclerotic disease with bilateral common iliac artery stents. The right stent is occluded but the common iliac artery is reconstituted via collaterals. 4. Enlarged fibroid uterus. 5. Normal appendix, otherwise negative. Gallbladder ultrasound dated 04/03/2019. Impression: 1. Dilated common bile duct. The intrahepatic biliary ducts do not appear dilated. No cholelithiasis, the gallbladder is normal. 2. No ascites. 3. Positive hepatomegaly at 22 cm in craniocaudal measurement in the midclavicular line. The hepatic parenchyma is homogeneous. MRCP, 04/03/2019. Impression: 1. Slight thickening of the gallbladder wall. No calculi are demonstrated 2. No dilation of the intrahepatic biliary tree. The common bile duct is dilated to 9.9 mm in the mid to distal segment. No obstructing mass or calculus demonstrated. 3. 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 Followup could be obtained in 12 months. HIDA scan. Impression: 1. No scintigraphic evidence of cholecystitis. 2. There is visualization of the gallbladder at 25 minutes post injection and biliary to bowel transit is seen at approximately the same time. LABORATORY FINDINGS: WBC 5.2, hemoglobin 12.3, hematocrit 35.8, platelet count is 207. Sodium 143, potassium 3.5, chloride 108, BUN 7, creatinine 0.46. Iron level 148, TIBC is 233, transferrin saturation is 63.5, total bilirubin is 1.0/2.2, direct bilirubin 0.9, AST is 143/192, ALT is 100/193, alkaline phosphatase is 122/129, albumin 2.8, CA 19-9 of 50.3. Hepatitis A IgM antibody is negative. Hepatitis B, C indices are negative, antinuclear antibody, ANCA and antimitochondrial antibodies are pending, ceruloplasmin is pending. IMPRESSION: 1. Subacute onset of abdominal pain radiating to her back associated with severe nausea, vomiting, subjective fever and shaking chills. 2. Mixed pattern mild liver enzyme abnormality. (this is new from her known baseline) 3. Vomiting/Hematemesis. 4. 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 5. Patient with known fatty liver and possible early cirrhosis. 6. Bariatric surgery patient-RNY Her overall presentation was certainly suspicious for biliary colic/obstruction, however all radiologic testing (CT/US/MRCP/HIDA) is negative for such. I think it is still possible that she may have passed some gallbladder sludge that is not detected by radiology studies through her bile duct, however other differentials need to be evaluated. Also in the differential would be an infectious/viral syndrome or drug/toxic reaction and autoimmune disorders. Recommendation: 1. Monitor Liver enzymes and await results of additional labs ordered. 2. Continue supportive measures/symptom control. 3. Her symptoms have improved markedly, and her dark color urine has resolved. I think that if her Liver enzymes/bilirubin have peaked and are on downtrend tomorrow, we can follow her as outpatient, awaiting results of labs. 4. She has a small cyst in the tail of her pancreas. This is very small and is measured at 2-3 mm. Per radiology, it has the appearance of a possible side branch IPMN. This will need followup in the next 4-6 months as I do see that her CA 19-9 is slightly elevated at 53. Please note, that we do not have endoscopic ultrasound capabilities locally and I will defer further management of this to her primary lower school spanish teacher, Dr. Tesfaye Garza, to follow this up either with a repeat MRI or proceed with endoscopic ultrasound if this is reachable in presence of a Carina-en-Y gastric bypass. DINA
[2019-04-05] MEDS ORDERED: ONDANSETRON 4MG/2ML VIAL (J2405) IV PRN (09:00)
[2019-04-05] MEDS ORDERED: LR 1,000 ML IV SCH (09:00)
[2019-04-05] MEDS: ENOXAPARIN 40 MG/0.4 ML SYRINGE (J1650) SC SCH (09:00)
--- NOTE | 2019-04-05 09:10 | ROOR ---
Patient Name: Riana Song Procedure Date: 04/05/2019 8:09 AM Date of : 1970 Age: 48 Gender: Female Note Status: Finalized Procedure: Upper GI endoscopy Indications: Hematemesis Providers: Morgan GARCIA MD Referring MD: Kehinde Urbina MD, 2. Inpatient 2. Inpatient Requesting Provider: Medicines: Monitored Anesthesia Care Complications: No immediate complications. Procedure: Pre-Anesthesia Assessment: - The heart rate, respiratory rate, oxygen saturations, blood pressure, adequacy of pulmonary ventilation, and response to care were monitored throughout the procedure. The Endoscope was introduced through the mouth, and advanced to the jejunum. The upper GI endoscopy was accomplished without difficulty. The patient tolerated the procedure well. Findings: The examined esophagus was normal. A small hiatal hernia was present. Evidence of a Carina-en-Y gastrojejunostomy was found. The gastrojejunal anastomosis was characterized by healthy appearing mucosa. This was traversed. The efferent limb is characterized by healthy appearing mucosa. The jejunojejunal anastomosis,afferent limb and qepfdlyv-um-fictslj limb was not examined as it could not be reached. The exam of the stomach was otherwise normal. The examined efferent jejunum was normal. Impression: - Normal esophagus. - Small hiatal hernia. - Carina-en-Y gastrojejunostomy. This is normal in appearance. - Normal examined efferent jejunum. - No specimens collected. Recommendation: - Observe patient's clinical course. - I anticipate no further need for intervention. - Advance diet as tolerated. - Additionally: Her liver enzymes have improved/resolved. Several labs still pending.--I will follow up on these. Follow up with her pictures editor for follow up (EUS/MRI) on a small (2-3 mm) pancreatic tail cyst/lesion. (incidental finding on MRCP--possible IPMN). Morgan Garcia MD Morgan GARCIA MD 04/05/2019 9:10:30 AM Electronically signed by Morgan GARCIA MD Number of Addenda: 0 Note Initiated On: 04/05/2019 8:09 AM Estimated Blood Loss: Estimated blood loss: none.
[2019-04-05] MEDS: SERTRALINE 100 MG TAB PO SCH (10:43)
[2019-04-05] MEDS: PHENYTOIN ER 100 MG CAP PO SCH (10:43)
[2019-04-05] MEDS: FOLIC ACID 1 MG TAB PO SCH (10:44)
[2019-04-05] MEDS: VITAMIN D 1,000 INTERNATIONAL UNITS TABLET PO SCH (10:44)
[2019-04-05] MEDS: MULTIVITAMINS CHILDREN'S CHEWABLE TABLET PO SCH (10:44)
[2019-04-05] MEDS: CLOPIDOGREL 75 MG TAB PO SCH (10:44)
[2019-04-05] MEDS: OMEPRAZOLE 20 MG CAP PO SCH (10:44)
[2019-04-05] MEDS: CYANOCOBALAMIN 500 MCG TAB PO SCH (10:44)
[2019-04-05 10:45] VITALS: BP 147/74
[2019-04-05] MEDS: LOSARTAN 25 MG TAB PO SCH (10:45)
[2019-04-05] MEDS: BISOPROLOL FUMARATE 5 MG TAB PO SCH (10:45)
[2019-04-05 12:00] VITALS: BP 140/65
[2019-04-05 16:00] VITALS: BP 155/70
--- NOTE | 2019-04-05 17:27 | DS.PDOC ---
Discharge Summary General Date of Admission Apr 03, 2019 at 15:33 Date of Discharge 04/05/19 Primary Care Physician: Kehinde Urbina MD Attending Physician: Ever Choudhury MD Specialist/Consultants Involve: MITCHELL FRANCES MD Discharge Summary ADMITTING DIAGNOSES: 1. Abdominal pain, likely biliary colic. 2. Likely choledocholithiasis without any signs of cholangitis. DISCHARGE DIAGNOSES: 1. Abdominal pain, likely biliary colic. 2. Mucinous mass of the pancreas. 3. Transaminitis. 4. Morbid obesity. 5. Type 2 diabetes. 6. Peripheral vascular disease. PROCEDURES PERFORMED DURING STAY: Upper GI endoscopy. ADMISSION HISTORY: Ms. Song is a 48-year-old female admitted with a reason for visit of Abdominal Pain. Please see the admission history and physical for the remaining details. HOSPITAL COURSE: Ms. Song was about admitted with abdominal pain. She is status post Carina-en-Y gastric bypass. Because of her transaminitis, there was concern that she might have biliary colic and choledocholithiasis. Her abdominal pain improved the day after she was admitted. She did have an upper GI endoscopy was essentially normal. There was an MRI/MRCP done of her abdomen that showed a small mucinous mass in her pancreas. This was deferred for outpatient evaluation. DISCHARGE CONDITION: Stable. FOLLOW-UP: Prior to discharge an appointment was scheduled with Dr. Shane on 04/07/19 at 10:00. DIET: Consistent carbohydrate as tolerated. ACTIVITY: As tolerated. DISCHARGE MEDICATIONS: Please see below. ALLERGIES: Please see below. LABORATORY DATA: Please see below. IMAGING: CT angiogram of the chest, CT of the abdomen and pelvis, gallbladder ultrasound, MRCP, HIDA scan ITEMS TO FOLLOWUP ON ON OUTPATIENT: 1. 6 mm size nodule in the right lower lobe. According to the revised Fleischner's Society criteria this represents a category 4A lesion for which a [address] scan of the chest is recommended.. TIME SPENT ON DISCHARGE: Greater than 20 minutes. Vital Signs/I&Os Vital Signs Date Time Temp Pulse Resp B/P (MAP) Pulse Ox O2 Delivery O2 Flow Rate FiO2 04/05/19 16:00 96.5 57 18 155/70 (98) 99 04/03/19 17:45 Room Air I&O- Last 24 Hours up to 6 AM 04/05/19 06:00 Intake Total 1200 ml Output Total 780 ml Balance 420 ml Laboratory Data Labs 24H Laboratory Tests 2 04/05/19 05:33: Nucleated Red Blood Cells % (auto) 0.0, Anion Gap 7L, Glomerular Filtration Rate > 60.0, Blood Urea Nitrogen 7, Creatinine 0.40L, Sodium Level 143, Potassium Level 3.5, Chloride Level 108H, Carbon Dioxide Level 28, Calcium Level 8.4L, Aspartate Amino Transf (AST/SGOT) 88H, Alanine Aminotransferase (ALT/SGPT) 141H, Alkaline Phosphatase 154H, Total Bilirubin 0.9#, Total Protein 6.7, Albumin 2.9L, Albumin/Globulin Ratio 0.76L CBC/BMP Laboratory Tests 04/05/19 05:33 Red Blood Count 3.86 L, Mean Corpuscular Volume 93.3, Mean Corpuscular Hemoglobin 31.3, Mean Corpuscular Hemoglobin Concent 33.6, Red Cell Distribution Width 13.9, Calcium Level 8.4 L, Aspartate Amino Transf (AST/SGOT) 88 H, Alanine Aminotransferase (ALT/SGPT) 141 H, Alkaline Phosphatase 154 H, Total Bilirubin 0.9 #, Total Protein 6.7, Albumin 2.9 L Discharge Medications Scheduled Bisoprolol Fumarate (Bisoprolol Fumarate) 10 Mg Tab, 5 MG PO DAILY, (Reported) Cholecalciferol (Vitamin D3) (Vitamin D3) 2,000 Unit Tablet, 2,000 UNIT PO DAILY, (Reported) Clopidogrel Bisulfate (Plavix) 75 Mg Tab, 75 MG PO DAILY, (Reported) Cyanocobalamin (Vitamin B-12) (Vitamin B-12) 1,000 Mcg Tablet, 1,000 MCG PO DAILY, (Reported) Folic Acid (Folic Acid) 1 Mg Tab, 1 MG PO BID, (Reported) Infliximab Injection (Remicade) 100 Mg Vial, 400 MG IV Q4WKS, (Reported) DUE TO RECEIVE 04/08/19 Losartan Potassium (Losartan Potassium) 25 Mg Tablet, 25 MG PO DAILY, (Reported) Methotrexate Sodium (Methotrexate) 2.5 Mg Tab, 20 MG PO QWEEK, (Reported) SUNDAYS Multivitamins (Child Chew Vitamin) 1 Each Tab.chew, 2 TAB PO DAILY, (Reported) Omeprazole (Omeprazole) 40 Mg Cap, 40 MG PO DAILY, (Reported) Phenytoin Sodium Extended (Dilantin) 100 Mg Cap, 600 MG PO DAILY, (Reported) Sertraline HCl (Sertraline HCl) 100 Mg Tablet, 200 MG PO DAILY, (Reported) Tiotropium [place] (Spiriva) 18 Mcg Cap, 18 MCG INH DAILY, (Reported) Scheduled PRN Acetaminophen (Acetaminophen) 500 Mg Tablet, 1,000 MG PO TID PRN for PAIN, (Reported) PATIENT STATES SHE TAKES 2 TO 4 TABLETS EVERY 6 HOURS IF SHE NEEDS IT. Albuterol Sulfate (Ventolin Hfa) 108 Mcg/Act Aer, 2 PUFFS INH QID PRN for SHORTNESS OF BREATH, (Reported) Ammonium Lactate (Ammonium Lactate) 12% Lotion, 1 DOSE TOP BID PRN for DRY SKIN, (Reported) APPLY TO ARMS AND CHEST Clonazepam (Clonazepam) 0.5 Mg Tablet, 0.5 MG PO 3XW PRN for ANXIETY, (Reported) Hydroxyzine HCl (Hydroxyzine HCl) 25 Mg Tablet, 25 MG PO TID PRN for ANXIETY, (Reported) Allergies Coded Allergies: Penicillins (Verified Allergy, Unknown, 10/30/18) Sulfa (Sulfonamide Antibiotics) (Verified Allergy, Unknown, 10/30/18) azithromycin (Verified Allergy, Unknown, 10/30/18) Ever Choudhury MD Apr 05, 2019 17:27
[2019-04-09 08:19] LABS: ANCA-ATYPICAL <1:20 titer (Neg:<1:20); ANTI-MITOCHONDRIAL ANTIBODY <20.0 Units (0.0-20.0); ANTINUCLEAR ANTIBODIES DIRECT Negative (Negative); CERULOPLASMIN 39.2 mg/dL (19.0-39.0); CYTOPLASMIC NEUTROP AB ANCA-C <1:20 titer (Neg:<1:20); PERINUCLEAR AB ANCA-P <1:20 titer (Neg:<1:20)
== END 2019-04-05 18:08 | disposition home or self-care (01) ==
LOC: EDBD 10:04 → M ED 10:04 → M ED INP 15:33 → M PCU 18:30
PROVIDERS: ADMIT Internal Medicine; ATTEND Family Medicine
PROC: 0DJ08ZZ Inspection of Upper Intestinal Tract, Via Natural or Artificial Opening Endoscopic (ICD-10-PCS; principal; 2019-04-05 08:00)
DX: K80.50 Calculus of bile duct without cholangitis or cholecystitis without obstruction (principal); E11.51 Type 2 diabetes mellitus with diabetic peripheral angiopathy without gangrene; Z68.41 Body mass index [BMI] 40.0-44.9, adult; K86.2 Cyst of pancreas; E66.01 Morbid (severe) obesity due to excess calories; R16.0 Hepatomegaly, not elsewhere classified; K76.0 Fatty (change of) liver, not elsewhere classified; K86.89 Other specified diseases of pancreas; G40.909 Epilepsy, unspecified, not intractable, without status epilepticus; R74.0 Nonspecific elevation of levels of transaminase and lactic acid dehydrogenase [LDH]; K21.9 Gastro-esophageal reflux disease without esophagitis; M06.9 Rheumatoid arthritis, unspecified; M19.90 Unspecified osteoarthritis, unspecified site; Z98.84 Bariatric surgery status; Z86.011 Personal history of benign neoplasm of the brain; K44.9 Diaphragmatic hernia without obstruction or gangrene; Z79.01 Long term (current) use of anticoagulants; Z79.899 Other long term (current) drug therapy; Z88.0 Allergy status to penicillin; Z88.1 Allergy status to other antibiotic agents; Z88.2 Allergy status to sulfonamides; Z95.820 Peripheral vascular angioplasty status with implants and grafts

== ENCOUNTER → 2019-04-07 | Outpatient (REF) | payer BC ==
[~2019-04-07] MED LIST changes: +ACET500T15 PO; +AMMO12LO TOP; +CLON0.5T2 PO; +CYAN100050 PO; +D 202000 PO; -LORA1TAB12 PO; +LORA1TAB4 PO; +SERT-138 PO; -SIMV20TA2 PO; +SIMV20TA22 PO; -SIMV40TA2 PO; +SIMV40TA20 PO; +VITACHTA PO
[2019-04-07 18:40] LABS: ALBUMIN 3.5 GM/DL (3.2-5.2); ALT/SGPT 126 U/L (12-78); AMYLASE 36 U/L (25-115); BILIRUBIN,TOTAL 1.4 MG/DL (0.2-1.0); BLOOD UREA NITROGEN 10 MG/DL (7-18); CALCIUM LEVEL 9.1 MG/DL (8.5-10.1); CARBON DIOXIDE LEVEL 31 MEQ/L (21-32); CHLORIDE LEVEL 105 MEQ/L (98-107); CREATININE FOR GFR 0.58 MG/DL (0.55-1.30); GLOMERULAR FILTRATION RATE > 60.0 (>51); GLUCOSE, FASTING 84 MG/DL (70-100); LIPASE 165 U/L (73-393); POTASSIUM SERUM 4.1 MEQ/L (3.5-5.1); SODIUM LEVEL 142 MEQ/L (136-145); TOTAL PROTEIN 7.1 GM/DL (6.4-8.2)
== END ==
LOC: M SFHCCLAY 10:53
PROVIDERS: ATTEND Family Medicine
DX: R10.13 Epigastric pain (principal)

== ENCOUNTER → 2019-04-30 | Outpatient (CLI) | payer BC ==
[~2019-04-30] MED LIST changes: -CLON0.5T2 PO; +CLON0.5T8 PO; +LORA1TAB12 PO; -LORA1TAB4 PO; +SIMV20TA2 PO; -SIMV20TA22 PO; +SIMV40TA2 PO; -SIMV40TA20 PO
--- NOTE | 2019-04-30 10:03 | REP ---
Clinical: Right lung nodule. Technique: Axial noncontrast images from the thoracic inlet to the upper abdomen with coronal and sagittal re-formations. Comparison: 04/03/2019. Findings: The bilateral lung adamson are well-aerated and essentially clear. No consolidation, pleural effusion, or mass lesion. No pneumothorax. A solitary 6 mm noncalcified nodule in the periphery of the right lower lobe is again identified and unchanged. No further nodular densities are noted. Mediastinum demonstrates atherosclerotic changes to the thoracic aorta and coronary arteries without aortic aneurysm. No cardiomegaly or pericardial effusion. No adenopathy. Surrounding musculoskeletal structures without focal abnormality. Limited evaluation of the upper abdomen demonstrates normal bilateral adrenal glands and evidence of prior gastric bypass surgery. Impression: 1. Stable solitary 6 mm noncalcified nodule in the right lower lobe. Consider 9 - 12-month follow-up examination to confirm stability. 2. No further mediastinal or pleuroparenchymal process. Electronically Signed by Kenton Troncoso MD 04/30/2019 09:55 A
== END ==
LOC: M RAD 09:06
PROVIDERS: ATTEND Nurse Practitioner Family
DX: R91.1 Solitary pulmonary nodule (principal)

== ENCOUNTER → 2019-08-27 | Outpatient (REF) | payer BC ==
[~2019-08-27] MED LIST changes: +CLON0.5T2 PO; -CLON0.5T8 PO; -LORA1TAB12 PO; +LORA1TAB4 PO; -SIMV20TA2 PO; +SIMV20TA22 PO; -SIMV40TA2 PO; +SIMV40TA20 PO
[2019-08-27 17:00] LABS: BLOOD UREA NITROGEN 11 MG/DL (7-18); CALCIUM LEVEL 8.5 MG/DL (8.5-10.1); CARBON DIOXIDE LEVEL 31 MEQ/L (21-32); CHLORIDE LEVEL 107 MEQ/L (98-107); CREATININE FOR GFR 0.55 MG/DL (0.55-1.30); GLOMERULAR FILTRATION RATE > 60.0 (>51); GLUCOSE, FASTING 81 MG/DL (70-100); POTASSIUM SERUM 4.2 MEQ/L (3.5-5.1); SODIUM LEVEL 141 MEQ/L (136-145)
== END ==
LOC: M SFHCCLAY 10:30
PROVIDERS: ATTEND Family Medicine
DX: I10 Essential (primary) hypertension (principal); E11.9 Type 2 diabetes mellitus without complications